=== PATIENT | female | born 1995 | race Caucasian/White ===

== ENCOUNTER 2019-04-05 12:21 | Inpatient (IN) | payer BC ==
[2019-04-05 13:08] LABS: ABS Basophils 0.1 10^3/ul (0-0.2); ABS Eosinophils 0.1 10^3/ul (0-0.6); ABS Lymphocytes 1.6 10^3/ul (1.0-4.8); ABS Monocytes 0.4 10^3/ul (0-0.8); ABS Neutrophils 4.6 10^3/ul (1.5-7.7); Eosinophil % 1.2 %; Hematocrit 42 % (35-47); Hemoglobin 13.8 g/dL (12.0-16.0); Lymphocyte % 23.4 %; Mean Corpuscular HGB Conc 33 g/dL (31-36); Mean Corpuscular Hemoglobin 28 pg (27-31); Mean Corpuscular Volume 85 fL (80-97); Mean Platelet Volume 7.6 fL (7.4-10.4); Nucleated Red Blood Cells % 0.2; Platelet Count 310 10^3/uL (150-450); Red Blood Count 4.93 10^6 /uL (3.70-4.87); Red Cell Distribution Width 13 % (10.5-15); White Blood Count 6.7 10^3/uL (3.5-10.8)
[2019-04-05 13:08] LABS: Urine Appearance Cloudy; Urine Bacteria 1+ (Absent); Urine Bilirubin Negative (Negative); Urine Blood Negative (Negative); Urine Color Yellow; Urine Glucose Negative (Negative); Urine Ketones Negative (Negative); Urine Nitrite Negative (Negative); Urine Protein Negative (Negative); Urine Red Blood Cell Trace(0-2/hpf) (Absent); Urine Specific Gravity 1.021 (1.010-1.030); Urine Squamous Epithelial Cell Present (Absent); Urine Urobilinogen Negative (Negative); Urine White Blood Cell Trace(0-5/hpf) (Absent)
[2019-04-05 13:20] LABS: Urine Benzodiazepine Screen None Detected (None Detect); Urine Opiates Screen None Detected (None Detect)
[2019-04-05 13:29] LABS: ALT 15 U/L (7-52); AST 11 U/L (13-39); Albumin 4.4 g/dL (3.2-5.2); Albumin/Globulin Ratio 1.3 (1-3); Alkaline Phosphatase 39 U/L (34-104); Anion Gap 8 mmol/L (2-11); BUN/Creatinine Ratio 14.1 (8-20); Blood Urea Nitrogen 11 mg/dL (6-24); CO2 Carbon Dioxide 27 mmol/L (22-32); Calcium 9.7 mg/dL (8.6-10.3); Chloride 106 mmol/L (101-111); EGFR African American 110.7 (>60); EGFR Non-African American 91.5 (>60); Globulin 3.3 g/dL (2-4); Glucose 101 mg/dL (70-100); Sodium 141 mmol/L (135-145); Total Protein 7.7 g/dL (6.4-8.9)
[2019-04-05 13:49] LABS: Acetaminophen < 15 mcg/mL; Alcohol < 10 mg/dL (<10); Salicylate < 2.50 mg/dL (<30)
[2019-04-05 14:17] LABS: TSH (Thyroid Stimulating Horm) 0.87 mcIU/mL (0.34-5.60)
--- NOTE | 2019-04-05 14:40 | ED ---
Psychiatric Complaint - HPI Summary HPI Summary: Patient is a 23-year-old female presenting to the ED with suicidal ideation for several months which has been worsening over the past week as well as self-harm to the bilateral wrists with cutting. She denies any recent cutting today, with last cutting history approximately 1 week ago. She has never had a suicidal attempt. She endorses suicidal thoughts, but denies any plan. Denies any homicidal ideation. Denies any other self-harm other than cutting the dorsum of the wrists. She denies any bleeding. Denies any pain at this time. She states she has been under more stress recently with a relationship breakup. She currently does not take any medications and does not have a therapist. She denies any drug or alcohol use. - History Of Current Complaint Chief Complaint: EDMentalHealth Time Seen by Provider: 04/05/19 12:27 Hx Obtained From: Patient ?: No Onset/Duration: Sudden Onset Timing: Constant Severity Initially: Moderate Severity Currently: Moderate - 1 Aggravating Factor(s): Nothing Alleviating Factor(s): Nothing Associated Signs And Symptoms: Positive: Negative Related History: Positive For: Prior Psychiatric Issues Has Suicidal: Reports: Thoughts - Risk Factor(s) Completed Suicide Risk Factors: Negative - Allergies/Home Medications Allergies/Adverse Reactions: Allergies Allergy/AdvReac Type Severity Reaction Status Date / Time No Known Drug Allergies Allergy See Comment Verified 04/05/19 17:23 dairy Allergy Abdominal Uncoded 04/05/19 12:34 Pain Home Medications: Home Medications Etonogest/Eth.estradiol (Nf) [Nuvaring Vaginal Ring] 1 applic VAGINAL MONTHLY [History Confirmed 04/05/19] PMH/Surg Hx/FS Hx/Imm Hx Previously Healthy: Yes - Immunization History Hx Pertussis Vaccination: No Immunizations Up to Date: Yes Infectious Disease History: No Infectious Disease History: Denies: Traveled Outside the [place] in Last 30 Days - Social History Occupation: Unemployed Lives: With Family Alcohol Use: Occasionally Hx Substance Use: Yes Substance Use Type: Reports: Marijuana Hx Tobacco Use: No Smoking Status (MU): Current Some Day Smoker Review of Systems Constitutional: Negative Negative: Fever, Chills, Fatigue, Skin Diaphoresis Negative: Palpitations, Chest Pain Negative: Shortness Of Breath, Cough Negative: Abdominal Pain, Vomiting, Diarrhea, Nausea Negative: Arthralgia, Myalgia Negative: Rash, Bruising Positive: Anxious, Depressed All Other Systems Reviewed And Are Negative: Yes Physical Exam Triage Information Reviewed: Yes Vital Signs On Initial Exam: Initial Vitals Temp Pulse Resp BP Pulse Ox 98 F 97 16 142/102 99 04/05/19 12:31 04/05/19 12:31 04/05/19 12:31 04/05/19 12:31 04/05/19 12:31 Vital Signs Reviewed: Yes Appearance: Positive: Well-Appearing, Well-Nourished Skin: Positive: Warm, Skin Color Reflects Adequate Perfusion Head/Face: Positive: Normal Head/Face Inspection Eyes: Positive: EOMI, IZA, Conjunctiva Clear Neck: Positive: Supple, No Lymphadenopathy Respiratory/Lung Sounds: Positive: Clear to Auscultation, Breath Sounds Present Cardiovascular: Positive: RRR, Pulses are Symmetrical in both Upper and Lower Extremities Musculoskeletal: Positive: Normal, Strength/ROM Intact Neurological: Positive: Speech Normal Psychiatric: Positive: Normal, Affect/Mood Appropriate Diagnostics - Vital Signs Vital Signs Temp Pulse Resp BP Pulse Ox 04/05/19 12:31 98 F 97 16 142/102 99 - Laboratory Lab Results: Lab Results 04/05/19 04/05/19 04/05/19 Range/Units 12:55 12:55 12:57 WBC 6.7 (3.5-10.8) 10^3/uL RBC 4.93 H (3.70-4.87) 10^6 /uL Hgb 13.8 (12.0-16.0) g/dL Hct 42 (35-47) % MCV 85 (80-97) fL MCH 28 (27-31) pg MCHC 33 (31-36) g/dL RDW 13 (10.5-15) % Plt Count 310 (150-450) 10^3/uL MPV 7.6 (7.4-10.4) fL Neut % (Auto) 68.1 % Lymph % (Auto) 23.4 % [place] % (Auto) 6.2 % Eos % (Auto) 1.2 % Baso % (Auto) 1.1 % Absolute Neuts (auto) 4.6 (1.5-7.7) 10^3/ul Absolute Lymphs (auto) 1.6 (1.0-4.8) 10^3/ul Absolute Monos (auto) 0.4 (0-0.8) 10^3/ul Absolute Eos (auto) 0.1 (0-0.6) 10^3/ul Absolute Basos (auto) 0.1 (0-0.2) 10^3/ul Absolute Nucleated RBC 0.0 10^3/ul Nucleated RBC % 0.2 Sodium (135-145) mmol/L Potassium (3.5-5.0) mmol/L Chloride (101-111) mmol/L Carbon Dioxide (22-32) mmol/L Anion Gap (2-11) mmol/L BUN (6-24) mg/dL Creatinine (0.51-0.95) mg/dL Est GFR ( Amer) (>60) Est GFR (Non-Af Amer) (>60) BUN/Creatinine Ratio (8-20) Glucose (70-100) mg/dL Calcium (8.6-10.3) mg/dL Total Bilirubin (0.2-1.0) mg/dL AST (13-39) U/L ALT (7-52) U/L Alkaline Phosphatase (34-104) U/L Total Protein (6.4-8.9) g/dL Albumin (3.2-5.2) g/dL Globulin (2-4) g/dL Albumin/Globulin Ratio (1-3) TSH (0.34-5.60) mcIU/mL Urine Color Yellow Urine Appearance Cloudy Urine pH 6.0 (5-9) Ur Specific [place] 1.021 (1.010-1.030) Urine Protein Negative (Negative) Urine Ketones Negative (Negative) Urine Blood Negative (Negative) Urine Nitrate Negative (Negative) Urine Bilirubin Negative (Negative) Urine Urobilinogen Negative (Negative) Ur Leukocyte Esterase 1+ A (Negative) Urine WBC (Auto) Trace(0-5/hpf) (Absent) Urine RBC (Auto) Trace(0-2/hpf) (Absent) Ur Squamous Epith Cells Present A (Absent) Urine Bacteria 1+ A (Absent) Urine Glucose Negative (Negative) Salicylates (<30) mg/dL Urine Opiates Screen None detected (None Detect) Acetaminophen mcg/mL Ur Barbiturates Screen None detected (None Detect) Ur Phencyclidine Scrn None detected (None Detect) Ur Amphetamines Screen None detected (None Detect) U Benzodiazepines Scrn None detected (None Detect) Urine Cocaine Screen None detected (None Detect) U Cannabinoids Screen Presumptive positive A (None Detect) Serum Alcohol (<10) mg/dL 04/05/19 Range/Units 12:57 WBC (3.5-10.8) 10^3/uL RBC (3.70-4.87) 10^6 /uL Hgb (12.0-16.0) g/dL Hct (35-47) % MCV (80-97) fL MCH (27-31) pg MCHC (31-36) g/dL RDW (10.5-15) % Plt Count (150-450) 10^3/uL MPV (7.4-10.4) fL Neut % (Auto) % Lymph % (Auto) % [place] % (Auto) % Eos % (Auto) % Baso % (Auto) % Absolute Neuts (auto) (1.5-7.7) 10^3/ul Absolute Lymphs (auto) (1.0-4.8) 10^3/ul Absolute Monos (auto) (0-0.8) 10^3/ul Absolute Eos (auto) (0-0.6) 10^3/ul Absolute Basos (auto) (0-0.2) 10^3/ul Absolute Nucleated RBC 10^3/ul Nucleated RBC % Sodium 141 (135-145) mmol/L Potassium 4.0 (3.5-5.0) mmol/L Chloride 106 (101-111) mmol/L Carbon Dioxide 27 (22-32) mmol/L Anion Gap 8 (2-11) mmol/L BUN 11 (6-24) mg/dL Creatinine 0.78 (0.51-0.95) mg/dL Est GFR ( Amer) 110.7 (>60) Est GFR (Non-Af Amer) 91.5 (>60) BUN/Creatinine Ratio 14.1 (8-20) Glucose 101 H (70-100) mg/dL Calcium 9.7 (8.6-10.3) mg/dL Total Bilirubin 1.00 (0.2-1.0) mg/dL AST 11 L (13-39) U/L ALT 15 (7-52) U/L Alkaline Phosphatase 39 (34-104) U/L Total Protein 7.7 (6.4-8.9) g/dL Albumin 4.4 (3.2-5.2) g/dL Globulin 3.3 (2-4) g/dL Albumin/Globulin Ratio 1.3 (1-3) TSH 0.87 (0.34-5.60) mcIU/mL Urine Color Urine Appearance Urine pH (5-9) Ur Specific [place] (1.010-1.030) Urine Protein (Negative) Urine Ketones (Negative) Urine Blood (Negative) Urine Nitrate (Negative) Urine Bilirubin (Negative) Urine Urobilinogen (Negative) Ur Leukocyte Esterase (Negative) Urine WBC (Auto) (Absent) Urine RBC (Auto) (Absent) Ur Squamous Epith Cells (Absent) Urine Bacteria (Absent) Urine Glucose (Negative) Salicylates < 2.50 (<30) mg/dL Urine Opiates Screen (None Detect) Acetaminophen < 15 mcg/mL Ur Barbiturates Screen (None Detect) Ur Phencyclidine Scrn (None Detect) Ur Amphetamines Screen (None Detect) U Benzodiazepines Scrn (None Detect) Urine Cocaine Screen (None Detect) U Cannabinoids Screen (None Detect) Serum Alcohol < 10 (<10) mg/dL Result Diagrams: 04/05/19 12:57 04/05/19 12:57 Lab Statement: Any lab studies that have been ordered have been reviewed, and results considered in the medical decision making process. Course/Dx - Course Course Of Treatment: During his course of treatment, the patient's evaluated for suicidal ideation without plan. On arrival into the ED, patient was placed on constant observation due to her suicidal ideation status. After assessment, she was then placed on every 15 assessment. Vital signs are stable. Labs obtained and are WNL. UA obtained and is WNL. She is cleared for MHU. Patient is admitted to mental health unit for unspecified depression disorder. - Differential Dx/Clinical Impression Differential Diagnosis/HQI/PQRI: Positive: Anxiety, Bipolar Disorder, Depression Provider Diagnosis: Depressive disorder Discharge - Sign-Out/Discharge Documenting (check all that apply): Patient Departure All imaging exams completed and their final reports reviewed: No Patient Received Moderate/Deep Sedation with Procedure: No - Discharge Plan Condition: Good [facility] [place] [facility] Billing Disposition and Condition Condition: GOOD Disposition: Psychiatric Facility [facility] [place]
[2019-04-05] MEDS ORDERED: Acetaminophen TAB* 325 MG PO PRN (17:10)
[2019-04-05] MEDS ORDERED: Al Hydrox/Mg Hydrox/Simet LIQ* 30 ML UDC PO PRN (17:10)
[2019-04-05] MEDS ORDERED: hydrOXYzine HCL TAB* 50 MG PO PRN (17:11)
[2019-04-06 08:24] LABS: HDL Cholesterol 44.9 mg/dL
--- NOTE | 2019-04-06 08:45 | HP ---
H&P (Free Text) History and Physical: Justification for admission: Immediate Safety. CC " I found out that the alyssa I was dating is engaged to someone else" The patient was brought to [facility] by her mother. 3 weeks ago she found out her boyfriend that she was dating for the last 6 months was engaged to another women. She has been cutting her self with a knife on her left arm, she has been trouble with sleep and has had a poor appetite with 10-15 weight loss. She has tried to talk with friends about how she feels. She reported having racing thoughts and feels used and worthless. She denied access to firearms or stockpiles of medications. The patient denied homicidal ideation intent or plan. The patient denied auditory and/ or visual hallucinations. MDD Reported feeling depressed which has interrupted her everyday functioning. She has been having crying spells , feeling empty inside, feelings hopelessness and worthless. She has had unintentional weight loss and appetite . Reported interruption of sleep and decreased concentration. Anxiety Reported having symptoms of anxiety in the past where her heart feels that it is beating out of chest, sweaty palms, or shallow breathing. She reported having feelings of restlessness, high strung, worrying too much most of the time. Bipolar Denied symptoms of ricky such as having many ideas at once. Denied increased talkativeness where no one can interrupt. Denied feeling irritable most of the time while having an persistent abundance of energy most of the day without the use of energy drinks, stimulants, or recreational drug use. Denied an increase in intensity in goal directed activities. Denied having the decreased need to sleep for days , having prolonged elevated heighted mood , or feeling on top of the world. Denied impulsive risky sexual encounters. Denied spending money recklessly , going on spending sprees wiping out savings. Denied impulsively traveling out of town or country, having super phillips, and unrealistic wealth or fame. Psychosis Does not endorse hearing things that other people do not hear or seeing things other people do not see. Denied feeling that TV is making references. Denied feeling that people are spying , following , or reading their thoughts. Phobias: Patient denied having excessive fear of a particular thing or situation. Eating disorders: Patient denied having excessive eating habits or feelings of guilt after eating. Denied repeated episodes of self induced vomiting after eating. PTSD Denied flashbacks, nightmares and avoidance of a prior traumatic event. PAST PSYCHIATRIC HISTORY: Prior Diagnosis : None History of past Psychiatric Hospitalizations: No prior psychiatric admission. History of past suicide/homicide attempts : Denied past suicide attempts. Denied past homicidal incidents. Outpatient follow-up: none Medications: No past trials of medications Guardianship: None. FAMILY HISTORY: - Suicide: Denied family history of suicide. - Mental illness: Denied a history of mental health in immediate family members. - Substance abuse: Denied substance abuse among family members. SUBSTANCE ABUSE HISTORY: Denied using heroin and cocaine other illicit substances. Denied abusing pills not prescribed . Denied past Substance abuse treatment. - EtOH: drinks socially < once a month - Tobacco: Denied - Cannabis: uses daily SOCIAL HISTORY: - Childhood: Grew up in [place] raised by both parents, until her parents were when she was in 6th grade then mostly raised by her mother. Currently lives in [place] with a friend. Completed College with a degree in [employer] at [employer]. She is single has no children. Currently works at [employer]. She denied past history of sexual and or physical abuse. - Legal history: Denied - service history: Denied PAST MEDICAL HISTORY: Denied heart disease, diabetes, cancer and/ or other medical conditions. - Allergies: Dairy. Physical Exam: Please see ED note Mental Status Exam on Admission APPEARANCE : 23 year old female who appears stated age. Patient is not malodourous, and appears to have fair hygiene and grooming. BEHAVIOR: Cooperative , calm EYE CONTACT: Fair PSYCHOMOTOR ACTIVITY: No psychomotor agitation or retardation. MOVEMENTS: No abnormal movements observed. SPEECH : Normal rate, rhythm, volume and tone. MOOD : " Sad" AFFECT : Type is depressed Range is blunted shallow depth Mood congruent Labile THOUGHT PROCESS: formulated and organized in a logical, linear goal directed manner. No flight of ideas , neologism (made up words) , perseveration , tangential , loose associations , or circumstantiality. THOUGHT CONTENT: no delusions, obsessions, phobias or preoccupations. PERCEPTION: No current auditory or visual hallucinations. Doesnt appear to be responding to internal cues. No evidence of depersonalization , de-realization, or illusions SUICIDALITY Recent suicidal ideation HOMICIDALITY Denied homicidal ideation, intent or plan. Insight/judgment: fair insight and judgment ORIENTATION: Oriented to self, location, and time. Diagnosis on Admission: Major Depressive Disorder, severe. Assessment: 23 year old female with no prior psychiatric history and recent break came to the hospital with suicidal ideation was admitted to the BSU at [facility]. Plan #Admit to BSU, Q15 minute observation. Start regular diet without dairy. Encourage participation in activities on the milieu. #Patient evaluated in ED and was determined by the emergency room Physician to be medically fit for admission to the BSU. # Justification for Admission: For immediate safety per outlined in the [place] Mental Hygiene Code. # Voluntary admission. The patient requires inpatient admission at this time to assure safety, receive treatment and work toward stabilization. # Labs ordered: CBC, CMP, UDS, TSH, HBA1c, TSH, Toxicology screen, Urine analysis, and lipid profile. B-HCG was ordered and results are negative. # Obtain collateral information once release is signed. # Collaboration with Social Work to assist with disposition and after care. #Goals before discharge include: Decrease depression and self injurious behavior. The risks, benefits, and alternative treatment options were discussed as well as of the risks of refusing treatment. After this discussion and an acknowledgement of this understanding was made. A risk/ benefit assessment of treatment was considered and discussed with the patient. When comparing the risks of treatment with the dangers of not receiving treatment, the benefits of treatment outweigh the treatment risks at this time. Risks of suicidal ideation , behavioral changes, dystonia, movement disorders, cardiac conduction changes , serotonin syndrome, metabolic risks were among some of the risks discussed.
[2019-04-06] MEDS: Sertraline* 25 MG TAB PO SCH (13:35)
[2019-04-07] MEDS: Sertraline* 25 MG TAB PO SCH (09:48)
--- NOTE | 2019-04-07 12:30 | PN ---
Subjective - Subjective Date of Service: 04/07/19 Service Type: 29615 Hosp care 35 min high complexity Subjective: Nursing Report: Patient was visible on unit, no chemical restraints or PRNs. Slept overnight without incident. Attending group activities. CC: "I felt dizzy Patient was seen and evaluated today in the common room. The patient reported she feels safe on the unit and is interacting with peers. She reported having an adequate appetite and sleep. The patient reports attending and participating in day groups. Per nursing no behavioral issues or overnight events reported. Patient reported that she felt dizzy after taking her medications yesterday. She continues to have self defeating thoughts about being taken advantage of by her ex boyfriend. She thinks that she would be able to return to work in a place where he is at because she could avoid him since the place is large. Objective - General Observations Appearance: Neat Appears Stated Age: Yes Stature: Thin Posture: WNL Eye Contact: Average Behavior/Activity: WNL - Interaction Observations Attitude Towards Examiner: Cooperative Stated Mood: Anxious Affect: Blunted Speech Pattern/Tone: Clear Thought Process: Coherent Perception: WNL Thought Content: Self-Deprecatory Thought Process: Lethality: Passive Wish Hallucination Type: None Delusion Type: None - Cognitive Function Orientation: A&O x 4 Level of Consciousness: Awake Cognition: WNL - Medication Compliance Cooperative with Inpatient Medication Regimen: Yes - Group Participation Participates in Group Activities: Yes Assessment - Assessment Merits Inpatient Hospitalization: For Immediate Safety Clinical Impression: 23 year old female with recent suicidal ideation and break up with a boyfriend presented to the BSU Plan - Plan Treatment Plan: Name: SHAREE LOPEZ Birthdate: 1995 [id number] Plan #A Q30 minute observation and staff pass # Voluntary admission. The patient requires inpatient admission at this time to assure safety, receive treatment and work toward stabilization. B-HCG was ordered and results are negative. # Obtain collateral information once release is signed. Mother is a supportive resource. # Collaboration with Social Work to assist with disposition and after care. # Continue zoloft 25mg daily #Goals before discharge include: Decrease depression and self injurious behavior. Vital Signs Temp Pulse Resp BP Pulse Ox 98.9 F 81 16 128/85 100 04/07/19 07:44 04/07/19 07:44 04/07/19 07:44 04/07/19 07:44 04/07/19 07:44 Sodium 141 mmol/L (135-145) 04/05/19 12:57 Potassium 4.0 mmol/L (3.5-5.0) 04/05/19 12:57 BUN 11 mg/dL (6-24) 04/05/19 12:57 Creatinine 0.78 mg/dL (0.51-0.95) 04/05/19 12:57 Hemoglobin A1c 5.1 % (4.0-5.6) 04/06/19 07:55 Calcium 9.7 mg/dL (8.6-10.3) 04/05/19 12:57 AST 11 U/L (13-39) L 04/05/19 12:57 ALT 15 U/L (7-52) 04/05/19 12:57 Triglycerides 94 mg/dL 04/06/19 07:55 Cholesterol 121 mg/dL 04/06/19 07:55 LDL Cholesterol 57 mg/dL 04/06/19 07:55 Continued Medication Management: Continue Outpt Medication Medications: Current Medications Acetaminophen (Tylenol Tab*) 650 mg PO Q4H PRN PRN Reason: for pain; or Temp >101 F Al Hydrox/Mg Hydrox/Simethicone (Maalox Plus*) 30 ml PO Q4H PRN PRN Reason: INDIGESTION Hydroxyzine HCl (Atarax Tab*) 50 mg PO Q6H PRN PRN Reason: ANXIETY Sertraline HCl (Zoloft*) 25 mg PO DAILY LOIS Last Admin: 04/07/19 09:48 Dose: 25 mg - Discharge Plan Discharge Plan: Inpatient Hospitalization
[2019-04-08] MEDS: Sertraline* 50 MG TAB PO SCH (09:09)
--- NOTE | 2019-04-08 11:30 | PN ---
Subjective - Subjective Date of Service: 04/08/19 Service Type: 64783 Hosp care 35 min high complexity Subjective: Nursing Report: Patient was visible on unit, no chemical restraints or PRNs. Slept overnight without incident. Attending group activities. CC: "I am alright Patient was seen and evaluated today in the common room. She was observed eating breakfast before the encounter.The patient reported she feels safe on the unit and is interacting with peers. She reported getting a lot out of the groups today although it brought up bad feelings She reported having an adequate appetite and sleep. The patient reports attending and participating in day groups. Per nursing no behavioral issues or overnight events reported. Patient reported that she is tolerating medications without side effects today. Her mother visited the unit and met with typewriter assembler and inquired about follow up therapists. Objective - General Observations Appearance: Neat Appears Stated Age: Yes Stature: Thin Posture: WNL Eye Contact: Average Behavior/Activity: WNL - Interaction Observations Attitude Towards Examiner: Cooperative Stated Mood: Dysphoric Affect: Blunted Speech Pattern/Tone: Clear, Quiet Volume Thought Process: Coherent Perception: WNL Thought Content: WNL, Self-Deprecatory Hallucination Type: None Delusion Type: None - Cognitive Function Orientation: A&O x 4 Level of Consciousness: Awake Cognition: WNL - Medication Compliance Cooperative with Inpatient Medication Regimen: Yes - Group Participation Participates in Group Activities: Yes Assessment - Assessment Clinical Impression: 23 year old female with recent suicidal ideation and break up with a boyfriend presented to the BSU Plan - Plan Treatment Plan: Name: SHAREE LOPEZ Birthdate: 1995 [id number] Plan #Q30 minute observation and staff pass # Voluntary admission. The patient requires inpatient admission at this time to assure safety, receive treatment and work toward stabilization. # Mother was contacted and plans to visit today # Collaboration with Social Work to assist with disposition and after care. # Continue zoloft 50mg daily #Tentative Discharge tomorrow or Friday. # Patient would benefit from cognitive behavioral therapy. #Goals before discharge include: Decrease depression and self injurious behavior. Continued Medication Management: Continue Outpt Medication Medications: Current Medications Acetaminophen (Tylenol Tab*) 650 mg PO Q4H PRN PRN Reason: for pain; or Temp >101 F Al Hydrox/Mg Hydrox/Simethicone (Maalox Plus*) 30 ml PO Q4H PRN PRN Reason: INDIGESTION Hydroxyzine HCl (Atarax Tab*) 50 mg PO Q6H PRN PRN Reason: ANXIETY Sertraline HCl (Zoloft*) 50 mg PO DAILY LOIS Last Admin: 04/08/19 09:09 Dose: 50 mg - Discharge Plan Discharge Plan: Inpatient Hospitalization
--- NOTE | 2019-04-08 11:50 | PN ---
BSU: Group Therapy Note - Service Type Service Type: 06264 Group Psychotherapy - Cognitive Behavioral Group Therapy ( CBT):Patient attended CBT programming this morning and presented with flat affect that did not vary with discussion. Although responsive to direct prompts to respond to questions, patient did not engage in spontaneous conversation.
[2019-04-09] MEDS: Sertraline* 50 MG TAB PO SCH (08:59)
--- NOTE | 2019-04-09 09:48 | PN ---
Subjective - Subjective Date of Service: 04/09/19 Service Type: 04914 Hosp care 35 min high complexity Subjective: Nursing Report: Patient was visible on unit, no chemical restraints or PRNs. Slept overnight without incident. Attending group activities. CC: "I am well Patient was seen and evaluated today in the common room. The patient reported she feels safe on the unit and is interacting with peers. She reported having an adequate appetite and sleep. The patient reports attending and participating in day groups. Per nursing no behavioral issues or overnight events reported. Patient reported that she is tolerating medications without side effects. She reported that she gained much insight with the groups and plans to stay the weekend because she wants to engage in more treatment. Objective - General Observations Appearance: Neat Appears Stated Age: Yes Stature: Thin Posture: WNL Eye Contact: Average Behavior/Activity: WNL - Interaction Observations Attitude Towards Examiner: Cooperative Stated Mood: Dysphoric Affect: Blunted Thought Process: Coherent Perception: WNL Thought Content: Self-Deprecatory Hallucination Type: None - Cognitive Function Orientation: A&O x 4 Level of Consciousness: Awake Cognition: WNL - Medication Compliance Cooperative with Inpatient Medication Regimen: Yes - Group Participation Participates in Group Activities: Yes Assessment - Assessment Clinical Impression: 23 year old female with recent suicidal ideation and break up with a boyfriend presented to the [facility] Plan - Plan Treatment Plan: Name: SHAREE LOPEZ Birthdate: 1995 [id number] Plan #Q30 minute observation and staff pass # Voluntary admission. The patient requires inpatient admission at this time to assure safety, receive treatment and work toward stabilization. # Mother was contacted and plans to visit today # Collaboration with Social Work to assist with disposition and after care. # Continue zoloft 50mg daily #Tentative Discharge Friday. # Patient would benefit from cognitive behavioral therapy. #Goals before discharge include: Decrease depression and self injurious behavior. Continued Medication Management: Continue Outpt Medication Medications: Current Medications Acetaminophen (Tylenol Tab*) 650 mg PO Q4H PRN PRN Reason: for pain; or Temp >101 F Al Hydrox/Mg Hydrox/Simethicone (Maalox Plus*) 30 ml PO Q4H PRN PRN Reason: INDIGESTION Hydroxyzine HCl (Atarax Tab*) 50 mg PO Q6H PRN PRN Reason: ANXIETY Sertraline HCl (Zoloft*) 50 mg PO DAILY LOIS Last Admin: 04/09/19 08:59 Dose: 50 mg - Discharge Plan Discharge Plan: Inpatient Hospitalization
--- NOTE | 2019-04-09 11:22 | PN ---
[facility]: Group Therapy Note - Service Type Service Type: 13364 Group Psychotherapy - Cognitive Behavioral Group Therapy ( CBT):Patient was attentive and participatory in CBT programming this morning, and remained in good behavioral control. Patient expressed positive insights regarding relevant treatment interventions and goals.
[2019-04-10] MEDS: Sertraline* 50 MG TAB PO SCH (08:35)
--- NOTE | 2019-04-10 22:25 | PN ---
Subjective - Subjective Date of Service: 04/10/19 Service Type: 67788 Hosp care 15 min low complexity Subjective: Reports not wanting to return to work situation where she will have to face ex who cheated on her, has child with another woman. Reports OK mood, no SI, no urge to cut. Has been sleeping poorly but does not want any sleep aid. Declines any med change, stating there is no need for that. Family came to visit, feels supported. Objective - General Observations Appearance: Disheveled - mildly Appears Stated Age: Yes Stature: WNL Posture: WNL Eye Contact: Average Behavior/Activity: WNL - Interaction Observations Attitude Towards Examiner: Cooperative Stated Mood: Euthymic Speech Pattern/Tone: Clear Thought Process: Coherent, Goal Directed Perception: WNL Thought Content: WNL Hallucination Type: None Delusion Type: None - Cognitive Function Orientation: A&O x 4 Level of Consciousness: Awake, Alert, Appropriate Cognition: WNL Estimated Intelligence: Normal Insight: WNL Judgment Within Normal Limits: Yes - Medication Compliance Cooperative with Inpatient Medication Regimen: Yes - Group Participation Participates in Group Activities: Yes Assessment - Assessment Merits Inpatient Hospitalization: Consolidate Improvements, For Discharge Planning Clinical Impression: 23 year old female with recent suicidal ideation and break up with a boyfriend presented to the [facility] Plan - Plan Treatment Plan: Name: SHAREE LOPEZ Birthdate: 1995 [id number] Plan #Q30 minute observation and staff pass # Voluntary admission. The patient requires inpatient admission at this time to assure safety, receive treatment and work toward stabilization. # Mother was contacted and plans to visit today # Collaboration with Social Work to assist with disposition and after care. # Continue zoloft 50mg daily #Tentative Discharge Friday. # Patient would benefit from cognitive behavioral therapy. #Goals before discharge include: Decrease depression and self injurious behavior. Medications: Current Medications Acetaminophen (Tylenol Tab*) 650 mg PO Q4H PRN PRN Reason: for pain; or Temp >101 F Al Hydrox/Mg Hydrox/Simethicone (Maalox Plus*) 30 ml PO Q4H PRN PRN Reason: INDIGESTION Hydroxyzine HCl (Atarax Tab*) 50 mg PO Q6H PRN PRN Reason: ANXIETY Sertraline HCl (Zoloft*) 50 mg PO DAILY LOIS Last Admin: 04/10/19 08:35 Dose: 50 mg - Discharge Plan Discharge Plan: Outpatient Follow Up
[2019-04-11] MEDS: Sertraline* 50 MG TAB PO SCH (08:37)
[2019-04-11] MEDS ORDERED: ETONOGESTREL VAGINAL ONE (09:00)
[2019-04-11] MEDS ORDERED: ETH ESTRADIOL VAGINAL ONE (09:00)
[2019-04-12] MEDS: Sertraline* 50 MG TAB PO SCH (08:43)
--- NOTE | 2019-04-12 10:19 | DS ---
Subjective - Subjective Service Types: [id number] [facility] Day Mgmt complex over 30 min Discharge Date: 04/12/19 Subjective: CC: " I am ready to go home" Patient reported that she is ready to go home and looks forward to seeing her friends when she goes home. She reported going to the groups. No overnight events. Justification for admission: Immediate Safety. CC " I found out that the alyssa I was dating is engaged to someone else" The patient was brought to [facility] by her mother. 3 weeks ago she found out her boyfriend that she was dating for the last 6 months was engaged to another women. She has been cutting her self with a knife on her left arm, she has been trouble with sleep and has had a poor appetite with 10-15 weight loss. She has tried to talk with friends about how she feels. She reported having racing thoughts and feels used and worthless. She denied access to firearms or stockpiles of medications. The patient denied homicidal ideation intent or plan. The patient denied auditory and/ or visual hallucinations. MDD Reported feeling depressed which has interrupted her everyday functioning. She has been having crying spells , feeling empty inside, feelings hopelessness and worthless. She has had unintentional weight loss and appetite . Reported interruption of sleep and decreased concentration. Anxiety Reported having symptoms of anxiety in the past where her heart feels that it is beating out of chest, sweaty palms, or shallow breathing. She reported having feelings of restlessness, high strung, worrying too much most of the time. Bipolar Denied symptoms of ricky such as having many ideas at once. Denied increased talkativeness where no one can interrupt. Denied feeling irritable most of the time while having an persistent abundance of energy most of the day without the use of energy drinks, stimulants, or recreational drug use. Denied an increase in intensity in goal directed activities. Denied having the decreased need to sleep for days , having prolonged elevated heighted mood , or feeling on top of the world. Denied impulsive risky sexual encounters. Denied spending money recklessly , going on spending sprees wiping out savings. Denied impulsively traveling out of town or country, having super phillips, and unrealistic wealth or fame. Psychosis Does not endorse hearing things that other people do not hear or seeing things other people do not see. Denied feeling that TV is making references. Denied feeling that people are spying , following , or reading their thoughts. Phobias: Patient denied having excessive fear of a particular thing or situation. Eating disorders: Patient denied having excessive eating habits or feelings of guilt after eating. Denied repeated episodes of self induced vomiting after eating. PTSD Denied flashbacks, nightmares and avoidance of a prior traumatic event. PAST PSYCHIATRIC HISTORY: Prior Diagnosis : None History of past Psychiatric Hospitalizations: No prior psychiatric admission. History of past suicide/homicide attempts : Denied past suicide attempts. Denied past homicidal incidents. Outpatient follow-up: none Medications: No past trials of medications Guardianship: None. FAMILY HISTORY: - Suicide: Denied family history of suicide. - Mental illness: Denied a history of mental health in immediate family members. - Substance abuse: Denied substance abuse among family members. SUBSTANCE ABUSE HISTORY: Denied using heroin and cocaine other illicit substances. Denied abusing pills not prescribed . Denied past Substance abuse treatment. - EtOH: drinks socially < once a month - Tobacco: Denied - Cannabis: uses daily SOCIAL HISTORY: - Childhood: Grew up in [place] raised by both parents, until her parents were when she was in 6th grade then mostly raised by her mother. Currently lives in [place] with a friend. Completed College with a degree in Extric[employer] design at [employer]. She is single has no children. Currently works at [employer]. She denied past history of sexual and or physical abuse. - Legal history: Denied - service history: Denied PAST MEDICAL HISTORY: Denied heart disease, diabetes, cancer and/ or other medical conditions. - Allergies: Dairy. Physical Exam: Please see ED note Mental Status Exam on Admission APPEARANCE : 23 year old female who appears stated age. Patient is not malodourous, and appears to have fair hygiene and grooming. BEHAVIOR: Cooperative , calm EYE CONTACT: Fair PSYCHOMOTOR ACTIVITY: No psychomotor agitation or retardation. MOVEMENTS: No abnormal movements observed. SPEECH : Normal rate, rhythm, volume and tone. MOOD : " Sad" AFFECT : Type is depressed Range is blunted shallow depth Mood congruent Labile THOUGHT PROCESS: formulated and organized in a logical, linear goal directed manner. No flight of ideas , neologism (made up words) , perseveration , tangential , loose associations , or circumstantiality. THOUGHT CONTENT: no delusions, obsessions, phobias or preoccupations. PERCEPTION: No current auditory or visual hallucinations. Doesnt appear to be responding to internal cues. No evidence of depersonalization , de-realization, or illusions SUICIDALITY Recent suicidal ideation HOMICIDALITY Denied homicidal ideation, intent or plan. Insight/judgment: fair insight and judgment ORIENTATION: Oriented to self, location, and time. Diagnosis on Admission: Major Depressive Disorder, severe. Diagnosis on Discharge: Major Depressive Disorder, in partial remission. Condition at the time of discharge: At the time of discharge patient showed improvement of sleep and appetite. The patient was not a danger to self or others. The patient denied suicidal ideation , intent or plan. The patient denied homicidal targets, ideation, intent or plan. This patient participated in psychosocial rehabilitation and gained some insight into problems. The patient gained insight into mental illness, triggers, and treatment. The patient took medication as prescribed. The patient denied side effects of medication and objective signs of side effects were not evident. Therapy Resources were offered to the patient. Patient was given a supply of prescriptions at the time of discharge. The patient plans to attend follow up care with the follow up arrangements that were discussed and put in place. Patient was asked to keep appointments as scheduled, take medication as prescribed, have routine follow up care with their primary care physician and refrain from any use of alcohol or drugs. Objective - General Observations Appearance: Neat Appears Stated Age: Yes Stature: WNL Posture: WNL Eye Contact: Average Behavior/Activity: WNL - Interaction Observations Attitude Towards Examiner: Cooperative Stated Mood: Euthymic Affect: Full Speech Pattern/Tone: Clear Thought Process: Coherent Perception: WNL Thought Content: WNL Hallucination Type: None Delusion Type: None - Cognitive Function Orientation: A&O x 4 Level of Consciousness: Awake Cognition: WNL Judgment Within Normal Limits: Yes - Medication Compliance Cooperative with Inpatient Medication Regimen: Yes - Group Participation Participates in Group Activities: Yes Treatment Course & Assessment Clinical Course & Impression: Hospital course part A: 23 year old female with recent suicidal ideation and break up with a boyfriend presented to the [facility] Hospital course part B: Labs ordered included CBC, CMP, UDS, TSH, HBA1c, TSH, BHCG, Toxicology screen, Urine analysis, and lipid profile. Labs were reviewed and did not require the need for further evaluation. Vital signs were monitored during the course of admission. The patient was admitted to the adult behavioral unit and placed on 15 minute check for safety. At a later time the patient was on Q30 minute observation and staff pass privileges. With those limits being extended , there were no occurrence of behavioral incidents. The patient did well on the unit and went to groups. Interacted with peers had adequate sleep and regular appetite. Tolerated medication changes without side effects. Group therapy and services were offered. The risks, benefits, and alternative treatment options were discussed as well as of the risks of refusing treatment. Treatment associated risks discussed. After this discussion and made an acknowledgement of this understanding. Follow up care appointments were put in place for follow up care. The importance of monitoring for metabolic changes was discussed and acknowledgement of this understanding was made. Improvements in patient from the time of admission include: Improved affect, sleep and decrease in anxiety. No longer suicidal and no longer having feelings of hopelessness. The patient expressed readiness for discharge home. The patient presents with a broader range of affect, and the absence of depressed mood, delusions, perceptual disturbances. The patient denied suicidal and or homicidal ideation intent or plan. Overall, the patient responded well to inpatient treatment as evidenced by their report of strengthening of coping mechanisms, reduced distress, and more positive outlook on circumstances. Of note there was an improvement of recognizing how emotional state can effect mood and behavior. Safety precautions were put in place which included involving the patient and their family to closely monitor for changes in mental state. In addition, implementing follow up care, screening for the need to remove/securing firearms , weapons and stockpile of medications. Patient/ family instructed to immediately call 911 should any safety concerns arise. Patient showed improvement with therapy intervention during the course of hospitalization. CBT therapy showed the greatest response and it was recommended that she continue that after discharge. Patient noted that she is able to cope with the feelings that seeing her ex boyfriends may elicit. She requested that work disability forms from her work be completed. She plans to return to work this week. B-HCG is negative for current . She was informed of the risks associated with medication in . In the event that she becomes in the future and was advised to talk with her outpatient healthcare provider about starting or stopping medications during . The patient was advised of the 24 hour / 7 days a week availability of the emergency room and to call 911 in the event of an emergency such as being suicidal and/ or homicidal. The patient was informed of the contact information for [facility], [facility] Crisis [facility], National Suicide Prevention Lifeline, [facility], Alcoholics Anonymous, and [facility]. Medications started included zoloft 25mg daily and then increased to 50mg daily. Patient reported mild nausea the first day of taking mediations that went away the following day. Collateral information was obtained from her mother who is in agreement with discharge plan. Patient will be discharged to her apartment in [place] and her mother will pick her up from the hospital. Follow up appointment at [facility]. Patient informed of follow up appointment times. See more details for follow of care in discharge plan. Risk factors: ,single, history of depression, recent break up. Protective factors: Currently no suicidal ideation, intent or plan. No prior history of suicide attempt. Has family support system. No history of service. Currently no feelings of hopelessness, not in an occupation of social isolation, doesnt have multiple medical conditions, no family history of suicide, doesnt have access to firearms. Doesnt have command hallucinations and or psychotic features at this time. No history of substance abuse. No history of alcohol abuse. Not a anniversary of a loss of a loved one. Currently future orientated. Patient engaged in treatment and compliant with medication. Sodium 141 mmol/L (135-145) 04/05/19 12:57 Potassium 4.0 mmol/L (3.5-5.0) 04/05/19 12:57 BUN 11 mg/dL (6-24) 04/05/19 12:57 Creatinine 0.78 mg/dL (0.51-0.95) 04/05/19 12:57 Hemoglobin A1c 5.1 % (4.0-5.6) 04/06/19 07:55 Calcium 9.7 mg/dL (8.6-10.3) 04/05/19 12:57 AST 11 U/L (13-39) L 04/05/19 12:57 ALT 15 U/L (7-52) 04/05/19 12:57 Triglycerides 94 mg/dL 04/06/19 07:55 Cholesterol 121 mg/dL 04/06/19 07:55 LDL Cholesterol 57 mg/dL 04/06/19 07:55 Vital Signs Temp Pulse Resp BP Pulse Ox 99.3 F 87 16 121/60 100 04/12/19 07:48 04/12/19 07:48 04/12/19 07:48 04/12/19 07:48 04/12/19 07:48 Merits Inpatient Hospitalization: No Clear for Discharge: Adequate Clinical Respons Discharge Planning - Discharge Planning Discharge Plan: Outpatient Follow Up Outpatient Program: [facility] Recommendations for Continuing Care: Medication Management Medications: Current Medications Acetaminophen (Tylenol Tab*) 650 mg PO Q4H PRN PRN Reason: for pain; or Temp >101 F Al Hydrox/Mg Hydrox/Simethicone (Maalox Plus*) 30 ml PO Q4H PRN PRN Reason: INDIGESTION Hydroxyzine HCl (Atarax Tab*) 50 mg PO Q6H PRN PRN Reason: ANXIETY Sertraline HCl (Zoloft*) 50 mg PO DAILY LOIS Last Admin: 04/12/19 08:43 Dose: 50 mg Discharge Planning: Prescriptions provided for discharge [x] Yes [] No Follow up care details as per social work arrangements. Patient response to discharge plan: [] eager for discharge [x] agreeable with discharge plan [] ambivalent about discharge [] disagrees with discharge today
[2019-04-12 10:20] VITALS: BP 121/60
== END 2019-04-12 13:30 | disposition home or self-care (01) | DRG 751 ==
LOC: ED 12:21 → BSU 18:15
PROVIDERS: ADMIT Psychiatry & Neurology Psychiatry; ATTEND Psychiatry & Neurology Psychiatry
PROC: GZHZZZZ Group Psychotherapy (ICD-10-PCS; principal; 2019-04-05)
DX: F32.2 Major depressive disorder, single episode, severe without psychotic features (principal); R45.851 Suicidal ideations; F17.200 Nicotine dependence, unspecified, uncomplicated; Z91.5 Personal history of self-harm; Z91.011 Allergy to milk products; Z72.89 Other problems related to lifestyle
CPT/HCPCS: 36415; 80053; 80061; 80307; 80320; 80329; 81003; 81015; 83036; 84443; 84702; 85025; 87086; 90853; 99222; 99231; 99233; 99238; 99284; A9270-GY; G0480

== ENCOUNTER 2019-08-08 22:38 | Emergency (ER) | payer BC ==
[2019-08-08] MEDS ORDERED: Ondansetron INJ* 2 MG/ML VIAL IV ONE (22:55)
[2019-08-08] MEDS ORDERED: NS 0.9% 1000 ML** 2,000 ML IV ONE (22:55)
--- NOTE | 2019-08-08 22:56 | ED ---
Nausea/Vomiting/Diarrhea HPI - HPI Summary HPI Summary: Patient complains of sudden onset severe nausea vomiting and diarrhea starting at 11 AM this morning. Patient unable to tolerate solid or fluid by mouth intake. Complains of intermittent abdominal cramping on left side worse with urge to vomit or have diarrhea, resolves after vomiting or bowel movement. Denies fever, cough, sore throat, CP, SOB, change in urine, vaginal symptoms. Medical history is none. Abdominal surgical history is none. - History of Current Complaint Chief Complaint: EDAbdPain Stated Complaint: VOMITING PER PT Time Seen by Provider: 08/08/19 22:52 Hx Obtained From: Patient Onset/Duration: Sudden Onset, Lasting Hours Timing: Intermittent Episodes Lasting: Severity Initially: Moderate Severity Currently: Moderate Pain Intensity: 5 Pain Scale Used: 0-10 Numeric Location: Discrete At: LUQ, Discrete At: LLQ Character: Cramping Aggravating Factor(s): Other: Alleviating Factor(s): Vomiting, Bowel Movement Nausea/Vomiting Presence: Nauseated, Vomiting Vomiting Frequency: Every 15-60 minutes Nausea/Vomiting Duration: 0-12 hours Vomiting Characteristics: Retching, Nonbilious Diarrhea Presence: Yes Diarrhea Frequency: Every 15-60 minutes Diarrhea Characteristics: Watery - Allergies/Home Medications Allergies/Adverse Reactions: Allergies Allergy/AdvReac Type Severity Reaction Status Date / Time lactose Allergy Abdominal Verified 08/08/19 22:40 Pain milk Allergy Abdominal Verified 08/08/19 22:40 Pain Milk Containing Products Allergy Abdominal Verified 08/08/19 22:40 Pain Home Medications: Home Medications Sertraline* [Zoloft*] 100 mg PO DAILY 08/08/19 [History Confirmed 08/08/19] PMH/Surg Hx/FS Hx/Imm Hx Endocrine/Hematology History: Denies: Hx Anticoagulant Therapy Cardiovascular History: Denies: Hx Pacemaker/ICD History: Denies: Hx Dialysis Sensory History: Reports: Hx Contacts or Glasses Denies: Hx Hearing Aid Opthamlomology History: Reports: Hx Contacts or Glasses EENT History: Denies: Hx Deafness Neurological History: Denies: Hx Dementia Psychiatric History: Denies: Hx Eating Disorder, Hx of Violent Episodes Against Others - Surgical History Surgery Procedure, Year, and Place: tonsils removed, - Immunization History Immunizations Up to Date: Yes Infectious Disease History: No Infectious Disease History: Denies: Traveled Outside the [place] in Last 30 Days - Family History Known Family History: Positive: Non-Contributory - Social History Alcohol Use: Occasionally Hx Substance Use: Yes Substance Use Type: Reports: Marijuana Hx Tobacco Use: No Smoking Status (MU): Current Some Day Smoker Review of Systems Constitutional: Negative Eyes: Negative ENT: Negative Cardiovascular: Negative Respiratory: Negative Positive: Abdominal Pain, Vomiting, Diarrhea, Nausea Genitourinary: Negative Musculoskeletal: Negative Skin: Negative Neurological: Negative Psychological: Normal All Other Systems Reviewed And Are Negative: Yes Physical Exam - Summary Physical Exam Summary: Mild tenderness with palpation of left upper quadrant and left lower quadrant intermittently. Abdominal exam otherwise benign. Triage Information Reviewed: Yes Vital Signs On Initial Exam: Initial Vitals Temp Pulse Resp BP Pulse Ox 98.3 F 74 16 155/105 100 08/08/19 22:39 08/08/19 22:39 08/08/19 22:39 08/08/19 22:39 08/08/19 22:39 Vital Signs Reviewed: Yes Appearance: Positive: Well-Appearing Skin: Positive: Warm Head/Face: Positive: Normal Head/Face Inspection Eyes: Positive: Normal Neck: Positive: Supple Respiratory/Lung Sounds: Positive: Clear to Auscultation Cardiovascular: Positive: Normal Abdomen Description: Positive: Other: Musculoskeletal: Positive: Normal Neurological: Positive: Normal Psychiatric: Positive: Normal AVPU Assessment: Alert - [place] Coma Scale Best Eye Response: 4 - Spontaneous Best Motor Response: 6 - Obeys Commands Best Verbal Response: 5 - Oriented Coma Scale Total: 15 Diagnostics - Vital Signs Vital Signs Temp Pulse Resp BP Pulse Ox 08/08/19 22:39 98.3 F 74 16 155/105 100 - Laboratory Result Diagrams: 08/08/19 23:15 08/08/19 23:15 Lab Statement: Any lab studies that have been ordered have been reviewed, and results considered in the medical decision making process. Naus/Vom/Diarrhea Course/Dx - Course Course Of Treatment: Patient complains of sudden onset severe nausea vomiting and diarrhea starting at 11 AM this morning. Patient unable to tolerate solid or fluid by mouth intake. Complains of intermittent abdominal cramping on left side worse with urge to vomit or have diarrhea, resolves after vomiting or bowel movement. Denies fever, cough, sore throat, CP, SOB, change in urine, vaginal symptoms. Medical history is none. Abdominal surgical history is none. Vital signs within normal limits. WBC 14. PH 7.47, alkalosis likely secondary to severe vomiting and diarrhea. Anion gap 14. 2 L normal saline. Zofran 8 mg controlled nausea for a while. Ativan 1 mg appears to control nausea vomiting. Patient states she feels much better. Discharged with Rx for Zofran ODT and Ativan 1 mg for breakthrough nausea vomiting. - Differential Dx/Diagnosis Provider Diagnosis: Nausea vomiting and diarrhea Condition At Discharge: Stable Discharge ED - Sign-Out/Discharge Documenting (check all that apply): Patient Departure Patient Received Moderate/Deep Sedation with Procedure: No - Discharge Plan Condition: Stable Disposition: HOME Prescriptions: LORazepam [Ativan] 1 mg PO Q6H 1 Days #4 tablet MDD 4 tabs Ondansetron ODT TAB* [Zofran 4 MG Odt TAB*] 4 mg PO Q8H PRN 4 Days #14 tab.odt PRN Reason: Nausea Patient Education Materials: Acute Nausea and Vomiting (ED), Acute Diarrhea (ED ) Forms: *Work Release Referrals: No Primary Care Phys,NOPCP [Primary Care Provider] - Additional Instructions: Drink plenty of fluids to maintain hydration and electrolytes. Take Zofran as directed if needed for vomiting and nausea. Take Ativan if Zofran is not controlling nausea and vomiting. You may use [id number] loperamide for diarrhea. Return to the ED for any worsening symptoms - Billing Disposition and Condition Condition: STABLE Disposition: Home
[2019-08-08 23:23] LABS: ABS Basophils 0.1 10^3/ul (0-0.2); ABS Lymphocytes 0.9 10^3/ul (1.0-4.8); ABS Monocytes 0.2 10^3/ul (0-0.8); ABS Neutrophils 12.9 10^3/ul (1.5-7.7); Hematocrit 39 % (35-47); Hemoglobin 13.3 g/dL (12.0-16.0); Lymphocyte % 6.5 %; Mean Corpuscular HGB Conc 35 g/dL (31-36); Mean Corpuscular Hemoglobin 29 pg (27-31); Mean Corpuscular Volume 84 fL (80-97); Mean Platelet Volume 7.7 fL (7.4-10.4); Nucleated Red Blood Cells % 0.1; Platelet Count 301 10^3/uL (150-450); Red Cell Distribution Width 13 % (10-15); White Blood Count 14.1 10^3/uL (3.5-10.8)
[2019-08-08 23:42] LABS: ALT 11 U/L (7-52); AST 12 U/L (13-39); Albumin 4.5 g/dL (3.2-5.2); Albumin/Globulin Ratio 1.4 (1-3); Alkaline Phosphatase 52 U/L (34-104); Anion Gap 14 mmol/L (2-11); BUN/Creatinine Ratio 16.7 (8-20); Blood Urea Nitrogen 13 mg/dL (6-24); C Reactive Protein 14.47 mg/L (<8.01); CO2 Carbon Dioxide 18 mmol/L (22-32); Calcium 9.4 mg/dL (8.6-10.3); Chloride 105 mmol/L (101-111); EGFR African American 109.8 (>60); EGFR Non-African American 90.7 (>60); Globulin 3.3 g/dL (2-4); Glucose 146 mg/dL (70-100); Potassium 3.8 mmol/L (3.5-5.0); Sodium 137 mmol/L (135-145); Total Protein 7.8 g/dL (6.4-8.9)
[2019-08-08 23:48] LABS: HCG Pregnancy < 0.60 mIU/mL
[2019-08-09] MEDS ORDERED: Ondansetron INJ* 2 MG/ML VIAL IV ONE (00:13)
[2019-08-09] MEDS ORDERED: Morphine 4 MG/ML VIAL (1 ml) 4 MG/ML VIAL IV ONE (00:20)
[2019-08-09] MEDS ORDERED: Lorazepam PYXIS KEY PRN (00:25)
[2019-08-09] MEDS ORDERED: LORazepam INJ* 2 MG/ML 1 ML VIAL IV PUSH ONE (00:25)
[2019-08-09] MEDS ORDERED: Lorazepam PYXIS KEY ONE (00:38)
[2019-08-09 02:17] VITALS: BP 117/68
== END 2019-08-09 02:17 | disposition home or self-care (01) ==
LOC: ED 22:38
DX: R11.2 Nausea with vomiting, unspecified (principal); R19.7 Diarrhea, unspecified; R10.812 Left upper quadrant abdominal tenderness; R10.814 Left lower quadrant abdominal tenderness; Z91.011 Allergy to milk products; Z72.0 Tobacco use
CPT/HCPCS: 36415; 80053; 82803; 83690; 84702; 85025; 86140; 96361; 96374; 96375; 99283; J2060; J2405

== ENCOUNTER 2019-11-19 09:05 | Emergency (ER) | payer SELFPAY ==
[2019-11-19 09:40] LABS: ABS Basophils 0.1 10^3/ul (0-0.2); ABS Eosinophils 0.1 10^3/ul (0-0.6); ABS Lymphocytes 2.4 10^3/ul (1.0-4.8); ABS Monocytes 0.6 10^3/ul (0-0.8); ABS Neutrophils 7.5 10^3/ul (1.5-7.7); Eosinophil % 0.8 %; Hematocrit 47 % (35-47); Hemoglobin 15.9 g/dL (12.0-16.0); Lymphocyte % 22.3 %; Mean Corpuscular HGB Conc 34 g/dL (31-36); Mean Corpuscular Hemoglobin 28 pg (27-31); Mean Corpuscular Volume 84 fL (80-97); Mean Platelet Volume 7.4 fL (7.4-10.4); Nucleated Red Blood Cells % 0.1; Platelet Count 365 10^3/uL (150-450); Red Blood Count 5.67 10^6 /uL (3.70-4.87); Red Cell Distribution Width 14 % (10-15); White Blood Count 10.7 10^3/uL (3.5-10.8)
[2019-11-19] MEDS: Ondansetron INJ* 2 MG/ML VIAL IV ONE ×2 (09:42→09:52)
[2019-11-19] MEDS: Lactated Ringers 1000 ML Bag* 1,000 ML IV SCH ×2 (09:42→09:52)
[2019-11-19 09:56] LABS: ALT 20 U/L (7-52); AST 18 U/L (13-39); Albumin 4.7 g/dL (3.2-5.2); Albumin/Globulin Ratio 1.2 (1-3); Alkaline Phosphatase 50 U/L (34-104); Anion Gap 16 mmol/L (2-11); Blood Urea Nitrogen 15 mg/dL (6-24); CO2 Carbon Dioxide 21 mmol/L (22-32); Calcium 10.3 mg/dL (8.6-10.3); Chloride 104 mmol/L (101-111); EGFR African American 95.5 (>60); EGFR Non-African American 78.9 (>60); Globulin 3.9 g/dL (2-4); Glucose 113 mg/dL (70-100); Potassium 3.3 mmol/L (3.5-5.0); Sodium 141 mmol/L (135-145); Total Protein 8.6 g/dL (6.4-8.9)
[2019-11-19 10:03] LABS: HCG Pregnancy < 0.60 mIU/mL
[2019-11-19] MEDS: Potassium Chlor TAB* 20 MEQ TAB.ER PO ONE ×2 (10:37→10:55)
[2019-11-19] MEDS ORDERED: Metoclopramide IV* 5 MG/ML 2 ML VIAL IV ONE (10:46)
[2019-11-19] MEDS ORDERED: Lactated Ringers 1000 ML Bag* 1,000 ML IV SCH (11:00)
--- NOTE | 2019-11-19 11:00 | ED ---
Nausea/Vomiting/Diarrhea HPI - HPI Summary HPI Summary: This patient is a 24-year-old female with history of nausea, vomiting, diarrhea presents to the ED for same. She states 2 days ago she developed symptoms which have been persistent until approximately 12 hours ago. She states all symptoms resolved spontaneously until this morning and all symptoms began again. She has never been diagnosed with cyclic vomiting syndrome. She states she did not eat anything abnormal. She did try to take 2 of her Zofran at home without relief. She has been unable to keep anything down this morning and last by mouth intake was last evening. No past medical history otherwise. No surgical history. Patient takes no medications. - History of Current Complaint Chief Complaint: EDNauseaVomitDiarrh Stated Complaint: VOMITING Time Seen by Provider: 11/19/19 09:22 Hx Obtained From: Patient ?: No Onset/Duration: Sudden Onset Timing: Constant Severity Initially: Severe Severity Currently: Severe Pain Intensity: 3 Pain Scale Used: 0-10 Numeric Aggravating Factor(s): Nothing Alleviating Factor(s): Nothing Vomiting Frequency: Every 15-60 minutes Nausea/Vomiting Duration: 0-12 hours Vomiting Characteristics: Retching Diarrhea Presence: Yes Diarrhea Frequency: Every 1-2 hours Diarrhea Duration: 0-12 hours - Risk Factors Influenza Risk Factors: Negative - Allergies/Home Medications Allergies/Adverse Reactions: Allergies Allergy/AdvReac Type Severity Reaction Status Date / Time lactose Allergy Abdominal Verified 11/19/19 09:06 Pain milk Allergy Abdominal Verified 11/19/19 09:06 Pain Milk Containing Products Allergy Abdominal Verified 11/19/19 09:06 Pain PMH/Surg Hx/FS Hx/Imm Hx Previously Healthy: Yes Endocrine/Hematology History: Denies: Hx Anticoagulant Therapy Cardiovascular History: Denies: Hx Pacemaker/ICD History: Denies: Hx Dialysis Sensory History: Reports: Hx Contacts or Glasses Denies: Hx Deafness, Hx Hearing Aid Opthamlomology History: Reports: Hx Contacts or Glasses Neurological History: Denies: Hx Dementia Psychiatric History: Denies: Hx Eating Disorder, Hx of Violent Episodes Against Others - Surgical History Surgery Procedure, Year, and Place: tonsils removed, - Immunization History Hx Pertussis Vaccination: No Immunizations Up to Date: Yes Infectious Disease History: No Infectious Disease History: Denies: Traveled Outside the [place] in Last 30 Days - Family History Known Family History: Positive: Non-Contributory - Social History Occupation: Employed Full-time Lives: With Family Alcohol Use: Occasionally Hx Substance Use: Yes Substance Use Type: Reports: Marijuana Hx Tobacco Use: No Smoking Status (MU): Current Some Day Smoker Review of Systems Negative: Fever, Chills, Fatigue, Skin Diaphoresis Negative: Palpitations, Chest Pain Negative: Shortness Of Breath, Cough Positive: Vomiting, Diarrhea, Nausea Genitourinary: Negative Positive: no symptoms reported, see HPI Negative: Arthralgia, Myalgia Skin: Negative All Other Systems Reviewed And Are Negative: Yes Physical Exam Triage Information Reviewed: Yes Vital Signs On Initial Exam: Initial Vitals Temp Pulse Resp BP Pulse Ox 97 F 80 16 120/100 100 11/19/19 09:05 11/19/19 09:05 11/19/19 09:05 11/19/19 09:05 11/19/19 09:05 Completion Of Physical Exam Limited Due To: Dementia Appearance: Positive: Ill-Appearing Skin: Positive: Dry Head/Face: Positive: Normal Head/Face Inspection Eyes: Positive: EOMI, Conjunctiva Clear Neck: Positive: No Lymphadenopathy Respiratory/Lung Sounds: Positive: Clear to Auscultation, Breath Sounds Present Cardiovascular: Positive: RRR, Pulses are Symmetrical in both Upper and Lower Extremities Abdomen Description: Positive: Nontender, Soft Bowel Sounds: Positive: Present Neurological: Positive: Sensory/Motor Intact, Alert, Oriented to Person Place, Time, Speech Normal Psychiatric: Positive: Normal, Affect/Mood Appropriate AVPU Assessment: Alert Procedures - Sedation Patient Received Moderate/Deep Sedation with Procedure: No Diagnostics - Vital Signs Vital Signs Temp Pulse Resp BP Pulse Ox 11/19/19 10:00 68 100 11/19/19 09:28 72 158/115 94 11/19/19 09:27 74 100 11/19/19 09:05 97 F 80 16 120/100 100 - Laboratory Lab Results: Lab Results 11/19/19 11/19/19 11/19/19 Range/Units 09:32 09:32 09:32 WBC 10.7 (3.5-10.8) 10^3/uL RBC 5.67 H (3.70-4.87) 10^6 /uL Hgb 15.9 (12.0-16.0) g/dL Hct 47 (35-47) % MCV 84 (80-97) fL MCH 28 (27-31) pg MCHC 34 (31-36) g/dL RDW 14 (10-15) % Plt Count 365 (150-450) 10^3/uL MPV 7.4 (7.4-10.4) fL Neut % (Auto) 70.3 % Lymph % (Auto) 22.3 % Mchenry % (Auto) 5.6 % Eos % (Auto) 0.8 % Baso % (Auto) 1.0 % Absolute Neuts (auto) 7.5 (1.5-7.7) 10^3/ul Absolute Lymphs (auto) 2.4 (1.0-4.8) 10^3/ul Absolute Monos (auto) 0.6 (0-0.8) 10^3/ul Absolute Eos (auto) 0.1 (0-0.6) 10^3/ul Absolute Basos (auto) 0.1 (0-0.2) 10^3/ul Absolute Nucleated RBC 0.0 10^3/ul Nucleated RBC % 0.1 Sodium 141 (135-145) mmol/L Potassium 3.3 L (3.5-5.0) mmol/L Chloride 104 (101-111) mmol/L Carbon Dioxide 21 L (22-32) mmol/L Anion Gap 16 H (2-11) mmol/L BUN 15 (6-24) mg/dL Creatinine 0.88 (0.51-0.95) mg/dL Est GFR ( Amer) 95.5 (>60) Est GFR (Non-Af Amer) 78.9 (>60) BUN/Creatinine Ratio 17.0 (8-20) Glucose 113 H (70-100) mg/dL Lactic Acid 2.6 H* (0.5-2.0) mmol/L Calcium 10.3 (8.6-10.3) mg/dL Magnesium 2.0 (1.9-2.7) mg/dL Total Bilirubin 1.30 H (0.2-1.0) mg/dL AST 18 (13-39) U/L ALT 20 (7-52) U/L Alkaline Phosphatase 50 (34-104) U/L Total Protein 8.6 (6.4-8.9) g/dL Albumin 4.7 (3.2-5.2) g/dL Globulin 3.9 (2-4) g/dL Albumin/Globulin Ratio 1.2 (1-3) Lipase 22 (11.0-82.0) U/L Beta HCG, Quant < 0.60 mIU/mL Result Diagrams: 11/19/19 09:32 11/19/19 09:32 Lab Statement: Any lab studies that have been ordered have been reviewed, and results considered in the medical decision making process. Re-Evaluation - Re-Evaluation First Eval Change: Unchanged - continues to have nausea, less frequent wretching Naus/Vom/Diarrhea Course/Dx - Course Course Of Treatment: During this course treatment, the patient is evaluated for nausea, vomiting, diarrhea. On arrival into the ED, the patient is actively vomiting and dry heaving. She is given 4 mg Zofran and 1 L lactated Ringer's. Labs obtained which shows a normal white count, however lactic acid 2.5. She was subsequently given another liter of lactated Ringer's and 10 mg Reglan as symptoms did not completely resolve. Potassium 3.3, this was repleted with 40 mEq potassium chloride. Patient was subsequently given Ativan 1 mg with good effect. On reassessment one hour later, she complains of mild nausea, she was subsequently given another 4 mg Zofran. She states she is okay for discharge at this time. She will be given Reglan at home for nausea as she has Zofran. - Differential Dx/Diagnosis Differential Diagnoses - Female: Other - Cyclic vomiting, nausea, vomiting, diarrhea, gastroenteritis Provider Diagnosis: Nausea & vomiting Condition At Discharge: Stable Discharge ED - Sign-Out/Discharge Documenting (check all that apply): Patient Departure - Discharge Plan Condition: Stable Disposition: HOME Prescriptions: Metoclopramide TAB* [Reglan TAB*] 10 mg PO Q6H #20 tab Patient Education Materials: Cyclic Vomiting Syndrome (ED) Referrals: No Primary Care Phys,NOPCP [Primary Care Provider] - Additional Instructions: I have given you information regarding cyclic vomiting syndrome. Drink plenty of water, gatorade and eat small amounts at a time including cells , chicken noodle soup, toast, crackers Reglan 10 mg up to 4 times daily as needed for nausea You may also take your ativan and zofran as needed for nausea If you continue to be unable to tolerate fluids or food, return to the ED - Billing Disposition and Condition Condition: STABLE Disposition: Home - Attestation Statements Provider Attestation: I was available for consultation for this patient. I did not evaluate the patient or participate in any medical decision making or disposition decisions unless I am specifically named in the chart as having consulted on the patient. If I have consulted on the patient, please see my own ED note on the patient encounter. Melanie Martinez MD
[2019-11-19] MEDS ORDERED: LORazepam INJ* 2 MG/ML 1 ML VIAL IV PUSH ONE (11:39)
[2019-11-19] MEDS ORDERED: Lorazepam PYXIS KEY PRN (11:39)
[2019-11-19] MEDS ORDERED: Ondansetron INJ* 2 MG/ML VIAL IV ONE (13:21)
[2019-11-19 13:39] VITALS: BP 166/96
[2019-11-19] MEDS ORDERED: Potassium Chlor TAB* 20 MEQ TAB.ER PO SCH (14:00)
== END 2019-11-19 13:32 | disposition home or self-care (01) ==
LOC: ED 09:05
DX: R11.2 Nausea with vomiting, unspecified (principal); F17.200 Nicotine dependence, unspecified, uncomplicated
CPT/HCPCS: 36415; 80053; 83605; 83690; 83735; 84702; 85025; 96361; 96374; 96375; 99283; A9270-GY; J2060; J2405; J2765

== ENCOUNTER 2019-11-21 11:59 | Emergency (ER) | payer BC ==
[2019-11-21] MEDS ORDERED: NS 0.9% 1000 ML** 1,000 ML IV ONE ×2 (12:06→13:26)
--- NOTE | 2019-11-21 12:30 | ED ---
GI/ HPI - HPI Summary HPI Summary: Patient is a 24 y/o F presenting to [facility] for a chief complaint of vomiting that began on 11/17/19. Patient is present with her daughter and partner. Patient notes nausea, diarrhea, and decreased food and fluid intake because she cannot keep anything down. She describes episodes of vomiting on the night of when she had vomiting every 30 minutes to 1 hour. Patient previously had abdominal pain w vomiting which has since resolved. She denies fever. Patient was seen at [facility] on 11/19/19 for similar symptoms and diagnosed with cyclic vomiting. She had some relief with Zofran last taken on 11/20/19 and Ativan given at [facility]. She has no relief with Reglan. Patient state she stopped using tobacco on 11/16/19. Any significant PSHX or FMHx is denied. - History of Current Complaint Chief Complaint: EDNauseaVomitDiarrh Time Seen by Provider: 11/21/19 12:06 Stated Complaint: VOMITING PER PT Hx Obtained From: Patient Onset/Duration: Atraumatic, Still Present Timing: Intermittent Severity: Moderate Current Severity: Moderate Pain Intensity: 2 Location of Pain: Diffuse - Resolved Pain Characteristics: Unable to describe Associated Signs and Symptoms: Positive: Nausea, Vomiting, Diarrhea, Change in Appetite - Decreased food and fluid intake. Negative: Fever, Abdominal Pain - Resolved Aggravating Factor(s): Nothing Alleviating Factor(s): Medication - Zofran, Ativan - Additional Pertinent History Primary Care Physician: [facility] - Allergy/Home Medications Allergies/Adverse Reactions: Allergies Allergy/AdvReac Type Severity Reaction Status Date / Time lactose Allergy Abdominal Verified 11/21/19 12:39 Pain milk Allergy Abdominal Verified 11/21/19 12:39 Pain Milk Containing Products Allergy Abdominal Verified 11/21/19 12:39 Pain PMH/Surg Hx/FS Hx/Imm Hx Previously Healthy: Yes Endocrine/Hematology History: Denies: Hx Anticoagulant Therapy, Hx Diabetes Cardiovascular History: Denies: Hx Hypercholesterolemia, Hx Hypertension, Hx Pacemaker/ICD History: Denies: Hx Dialysis Musculoskeletal History: Reports: Other Musculoskeletal History - Cyclic vomiting Sensory History: Reports: Hx Contacts or Glasses Denies: Hx Legally Blind, Hx Deafness, Hx Hearing Aid Opthamlomology History: Reports: Hx Contacts or Glasses Denies: Hx Legally Blind EENT History: Denies: Hx Deafness Neurological History: Denies: Hx Dementia Psychiatric History: Denies: Hx Eating Disorder, Hx of Violent Episodes Against Others - Surgical History Surgical History: Yes Surgery Procedure, Year, and Place: tonsils removed, - Immunization History Date of Influenza Vaccine: 2019 Immunizations Up to Date: Yes Infectious Disease History: No Infectious Disease History: Denies: Traveled Outside the [place] in Last 30 Days - Family History Known Family History: Negative: Cardiac Disease, Hypertension, Diabetes - Social History Occupation: Employed Full-time Alcohol Use: Rare Hx Substance Use: Yes Substance Use Type: Reports: Marijuana Substance Use Comment - Amount & Last Used: 11/14/19 Hx Tobacco Use: Yes Smoking Status (MU): Former Smoker Review of Systems Positive: Other - Positive decreased fluid and food intake. Negative: Fever Positive: Vomiting, Diarrhea, Nausea. Negative: Abdominal Pain - Resolved All Other Systems Reviewed And Are Negative: Yes Physical Exam - Summary Physical Exam Summary: Constitutional: Well-developed, Well-nourished, Alert. (-) Distressed Skin: Warm, Dry HENT: Normocephalic; Atraumatic Eyes: Conjunctiva normal Neck: Musculoskeletal ROM normal neck. (-) JVD, (-) Stridor, (-) Nuchal rigidity Cardio: Rhythm regular, rate normal, Heart sounds normal; Intact distal pulses; Radial pulses are 2+ and symmetric. (-) Murmur Pulmonary/Chest wall: Effort normal. (-) Respiratory distress, (-) Wheezes, (-) Rales Abd: Soft, (-) tenderness, (-) Distension, (-) Guarding, (-) Rebound Musculoskeletal: (-) Edema Lymph: (-) Cervical adenopathy Neuro: Alert, Oriented x3 Psych: Mood and affect Normal Triage Information Reviewed: Yes Vital Signs On Initial Exam: Initial Vitals Temp Pulse Resp BP Pulse Ox 99.3 F 73 18 163/106 99 11/21/19 11:59 11/21/19 11:59 11/21/19 11:59 11/21/19 11:59 11/21/19 11:59 Vital Signs Reviewed: Yes Procedures - Sedation Patient Received Moderate/Deep Sedation with Procedure: No Diagnostics - Vital Signs Vital Signs Temp Pulse Resp BP Pulse Ox 11/21/19 11:59 99.3 F 73 18 163/106 99 - Laboratory Result Diagrams: 11/21/19 12:30 11/21/19 16:50 Lab Statement: Any lab studies that have been ordered have been reviewed, and results considered in the medical decision making process. - EKG 12:17 Cardiac Rate: NL - 71 BPM EKG Rhythm: Sinus Rhythm ST Segment: Normal Ectopy: None Summary of EKG Findings: An EKG at 12:17 reveals normal sinus rhythm with 71 BPM , nml axis, nml intervals. No STEMI. No acute changes. Reviewed and interpreted by Dr. Martinez. Re-Evaluation - Re-Evaluation First Eval Re-Evaluation Time: 14:17 Change: Unchanged Comment: At 14:17, patient is continuing to vomit. Second Eval Re-Evaluation Time: 17:21 Change: Improved Comment: At 17:21, patient is feeling improved and ready for discharge. GIGU Course/Dx - Course Course Of Treatment: 24-year-old female with a history of recent nausea vomiting presents with continued vomiting. - On arrival to ED patient nauseous , and 2 episodes of emesis. Abdomen soft, patient states she is having abdominal pain except when she is vomiting. No fevers. Did try Zofran once at home but did not have more Zofran. We'll give IV fluids, given Haldol since Zofran was not working and she is a history of marijuana use. EKG does not show prolonged QTC. - Labs notable for hypokalemia and elevated anion gap likely secondary to dehydration. Potassium repleted, repeat labs improved. Patient tolerating by mouth after Compazine, we'll send home on Compazine told not to use with other antiemetics - Diagnoses Provider Diagnoses: Nausea and vomiting Discharge ED - Sign-Out/Discharge Documenting (check all that apply): Patient Departure - Discharge - Discharge Plan Condition: Stable Disposition: HOME Prescriptions: Prochlorperazine TAB* [Compazine Tab*] 5 mg PO Q8H PRN 4 Days #12 tab PRN Reason: Vomiting Patient Education Materials: Acute Nausea and Vomiting (ED) Referrals: [facility] [Outside] Additional Instructions: You were seen in the emergency department for nausea and vomiting. You can take Compazine as needed for nausea 15 minutes prior to eating. Please do not take Compazine with Reglan or Zofran. Please follow up with your primary care doctor in next 2-3 days and return to emergency department for abdominal pain, inability to eat or drink, worsening, or concerning symptoms. It was a pleasure taking care of you today. - Billing Disposition and Condition Condition: STABLE Disposition: Home - Attestation Statements Document Initiated by Daron: Yes Documenting Scribe: Cari Story Provider For Whom Daron is Documenting (Include Credential): Melanie Martinez MD Scribe Attestation: I, Cari Story, scribed for Melanie Martinez MD on 11/21/19 at 1825. Scribe Documentation Reviewed: Yes Provider Attestation: The documentation as recorded by the Cari khalil accurately reflects the service I personally performed and the decisions made by me, Melanie Martinez MD Status of Scribe Document: Viewed
[2019-11-21] MEDS ORDERED: Haloperidol INJ IV/IM* 5 MG/ML AMP IV SLOW PU ONE (12:39)
[2019-11-21 12:42] LABS: ABS Basophils 0.1 10^3/ul (0-0.2); ABS Lymphocytes 2.6 10^3/ul (1.0-4.8); ABS Monocytes 0.7 10^3/ul (0-0.8); ABS Neutrophils 7.9 10^3/ul (1.5-7.7); Eosinophil % 0.4 %; Hematocrit 46 % (35-47); Hemoglobin 15.8 g/dL (12.0-16.0); Lymphocyte % 22.8 %; Mean Corpuscular HGB Conc 35 g/dL (31-36); Mean Corpuscular Hemoglobin 28 pg (27-31); Mean Corpuscular Volume 82 fL (80-97); Mean Platelet Volume 7.5 fL (7.4-10.4); Nucleated Red Blood Cells % 0.1; Platelet Count 376 10^3/uL (150-450); Red Blood Count 5.57 10^6 /uL (3.70-4.87); Red Cell Distribution Width 14 % (10-15); White Blood Count 11.3 10^3/uL (3.5-10.8)
[2019-11-21 12:54] LABS: Albumin 4.7 g/dL (3.2-5.2); Albumin/Globulin Ratio 1.2 (1-3); BUN/Creatinine Ratio 14.9 (8-20); Calcium 10.3 mg/dL (8.6-10.3); EGFR African American 116.7 (>60); EGFR Non-African American 96.4 (>60); Globulin 3.8 g/dL (2-4); Magnesium 1.9 mg/dL (1.9-2.7); Total Bilirubin 1.9 mg/dL (0.2-1.0); Total Protein 8.5 g/dL (6.4-8.9)
[2019-11-21] MEDS ORDERED: Potassium Chlor TAB* 20 MEQ TAB.ER PO ONE (13:05)
[2019-11-21] MEDS ORDERED: PROCHLORPERAZINE INJ 5 MG/ML 2 ML VIAL IV ONE (14:18)
[2019-11-21 16:04] VITALS: BP 159/96
[2019-11-21 17:11] LABS: BUN/Creatinine Ratio 13.8 (8-20); Calcium 8.7 mg/dL (8.6-10.3); EGFR African American 135.5 (>60); Potassium 3.1 mmol/L (3.5-5.0)
== END 2019-11-21 17:41 | disposition home or self-care (01) ==
LOC: ED 11:59
DX: R11.2 Nausea with vomiting, unspecified (principal); Z87.891 Personal history of nicotine dependence
CPT/HCPCS: 36415; 80048; 80053; 83735; 85025; 93005; 96361; 96374; 96375; 99284; A9270-GY; J0780; J1630; Q0164

== ENCOUNTER 2019-11-22 11:19 | Emergency (ER) | payer BC ==
--- NOTE | 2019-11-22 11:48 | ED ---
Complex/Multi-Sys Presentation - HPI Summary HPI Summary: 24-year-old female presents to emergency department today complaining of trismus , muscle fasciculation and spasm which began this morning. Patient was seen here yesterday for cyclical vomiting and treated with IV Compazine. Patient states she began having these symptoms this afternoon and they have been continually getting worse. Patient reports trouble speaking and moving her upper extremities. Patient denies shortness of breath or trouble secretions or swallowing. No stridor is noted. She denies fever, chest pain, abdominal pain , beginning urination or rash, joint pain, vomiting. - History Of Current Complaint Chief Complaint: EDAllergicReaction Time Seen by Provider: 11/22/19 11:44 Hx Obtained From: Patient Onset/Duration: Sudden Onset Timing: Constant Severity Currently: Mild Severity Initially: Moderate Associated Signs And Symptoms: Negative: Headache, SOB, Cough, Chest Pain, Nausea, Vomiting, Diarrhea, Abdominal Pain, Back Pain, Fever - Allergies/Home Medications Allergies/Adverse Reactions: Allergies Allergy/AdvReac Type Severity Reaction Status Date / Time lactose Allergy Abdominal Verified 11/21/19 12:39 Pain milk Allergy Abdominal Verified 11/21/19 12:39 Pain Milk Containing Products Allergy Abdominal Verified 11/21/19 12:39 Pain PMH/Surg Hx/FS Hx/Imm Hx Endocrine/Hematology History: Denies: Hx Anticoagulant Therapy, Hx Diabetes Cardiovascular History: Denies: Hx Hypercholesterolemia, Hx Hypertension, Hx Pacemaker/ICD History: Denies: Hx Dialysis Musculoskeletal History: Reports: Other Musculoskeletal History - Cyclic vomiting Sensory History: Reports: Hx Contacts or Glasses Denies: Hx Legally Blind, Hx Deafness, Hx Hearing Aid Opthamlomology History: Reports: Hx Contacts or Glasses Denies: Hx Legally Blind Neurological History: Denies: Hx Dementia Psychiatric History: Denies: Hx Eating Disorder, Hx of Violent Episodes Against Others - Surgical History Surgery Procedure, Year, and Place: tonsils removed, - Immunization History Date of Influenza Vaccine: 2018 Infectious Disease History: No Infectious Disease History: Denies: Traveled Outside the [place] in Last 30 Days - Family History Known Family History: Positive: Non-Contributory Negative: Cardiac Disease, Hypertension, Diabetes - Social History Alcohol Use: Rare Hx Substance Use: Yes Substance Use Type: Reports: Marijuana Substance Use Comment - Amount & Last Used: 11/14/19 Hx Tobacco Use: Yes Smoking Status (MU): Former Smoker Review of Systems Constitutional: Negative Eyes: Negative ENT: Negative Cardiovascular: Negative Respiratory: Negative Gastrointestinal: Negative Genitourinary: Negative Positive: Arthralgia, Myalgia, Decreased ROM Skin: Negative Neurological: Negative Positive: Slurred Speech Positive: Anxious All Other Systems Reviewed And Are Negative: Yes Physical Exam - Summary Physical Exam Summary: Patient has noted trismus and contracture of the upper extremities bilaterally with carpal spasms. Patient's physical exam is consistent with acute dystonic reaction to Compazine. Patient is in no acute distress and has no compromise of her airway. Triage Information Reviewed: Yes Vital Signs On Initial Exam: Initial Vitals Temp Pulse Resp BP Pulse Ox 97.0 F 100 18 150/114 97 11/22/19 11:22 11/22/19 11:22 11/22/19 11:22 11/22/19 11:22 11/22/19 11:22 Vital Signs Reviewed: Yes Appearance: Positive: Well-Appearing, No Pain Distress, Well-Nourished Skin: Positive: Warm, Skin Color Reflects Adequate Perfusion Eyes: Positive: EOMI, IZA ENT: Positive: Hearing grossly normal Respiratory/Lung Sounds: Positive: Clear to Auscultation, Breath Sounds Present Cardiovascular: Positive: RRR, S1, S2 Abdomen Description: Positive: Nontender, Soft Bowel Sounds: Positive: Present Musculoskeletal: Positive: Strength/ROM Intact Neurological: Positive: Sensory/Motor Intact, Alert, Oriented to Person Place, Time, Normal Gait, Speech Normal Psychiatric: Positive: Normal AVPU Assessment: Alert Procedures - Sedation Patient Received Moderate/Deep Sedation with Procedure: No Diagnostics - Vital Signs Vital Signs Temp Pulse Resp BP Pulse Ox 11/22/19 11:22 97.0 F 100 18 150/114 97 - Laboratory Lab Statement: Any lab studies that have been ordered have been reviewed, and results considered in the medical decision making process. Complex Multi-Symp Course/Dx Course Of Treatment: Patient was evaluated in the emergency department for a dystonic reaction to Compazine. Her vitals are noted and stable. Patient was given 50 mg Benadryl IM and monitored. Patient's symptoms resolved after being given Benadryl. Patient is stable for discharge and was informed to take Benadryl as needed when she experiences these symptoms. She is to follow-up with her primary care physician 5 days. - Diagnoses Differential Diagnoses/HQI/PQRI: Metabolic Abnormality, Other Provider Diagnoses: Acute dystonic reaction due to drugs Discharge ED - Sign-Out/Discharge Documenting (check all that apply): Patient Departure - Discharge Plan Condition: Stable Disposition: HOME Prescriptions: diPHENhydraMINE PO* [Benadryl PO 50 MG CAP*] 50 mg PO TID PRN #12 cap PRN Reason: Spasms - Muscle Ondansetron ODT TAB* [Zofran 4 MG Odt TAB*] 4 mg PO Q6H PRN #12 tab.odt PRN Reason: Nausea Patient Education Materials: Adverse Drug Reaction (ED) Referrals: No Primary Care Phys,NOPCP [Primary Care Provider] - [facility] [Outside] - 5 Days Additional Instructions: You were seen in the emergency department today due to a drug reaction to Compazine, called acute dystonia. If you experience these symptoms again please take Benadryl 50 mg. Please follow-up with your primary care physician or [facility] in 5 days for further evaluation and management of your symptoms. If you develop new or worsening symptoms please return to the emergency Department immediately. I have sent a prescription for Zofran to her pharmacy which is to be taken for nausea. - Billing Disposition and Condition Condition: STABLE Disposition: Home - Attestation Statements Provider Attestation: I was available for consult. This patient was seen by the YONATAN. The patient was not presented to, seen by, or examined by me. Stas Ogden MD
[2019-11-22] MEDS ORDERED: diPHENhydraMINE IV* 50 MG/ML 1 ml VIAL (BENADRYL) IM ONE (11:54)
[2019-11-22 12:32] VITALS: BP 132/87
== END 2019-11-22 12:31 | disposition home or self-care (01) ==
LOC: ED 11:19
DX: G24.02 Drug induced acute dystonia (principal); T43.3X5A Adverse effect of phenothiazine antipsychotics and neuroleptics, initial encounter; Y92.9 Unspecified place or not applicable; Z87.891 Personal history of nicotine dependence
CPT/HCPCS: 96372; 99282; J1200

== ENCOUNTER 2019-11-29 13:05 | Emergency (ER) | payer BC ==
[2019-11-29 13:49] LABS: ABS Basophils 0.1 10^3/ul (0-0.2); ABS Lymphocytes 0.8 10^3/ul (1.0-4.8); ABS Monocytes 0.2 10^3/ul (0-0.8); ABS Neutrophils 11.5 10^3/ul (1.5-7.7); Eosinophil % 0.1 %; Hematocrit 38 % (35-47); Lymphocyte % 6.3 %; Mean Corpuscular HGB Conc 34 g/dL (31-36); Mean Corpuscular Hemoglobin 28 pg (27-31); Mean Corpuscular Volume 83 fL (80-97); Mean Platelet Volume 8.2 fL (7.4-10.4); Platelet Count 283 10^3/uL (150-450); Red Blood Count 4.59 10^6 /uL (3.70-4.87); Red Cell Distribution Width 13 % (10-15); White Blood Count 12.6 10^3/uL (3.5-10.8)
[2019-11-29 14:06] LABS: ALT 13 U/L (7-52); AST 11 U/L (13-39); Albumin 4.5 g/dL (3.2-5.2); Albumin/Globulin Ratio 1.6 (1-3); Alkaline Phosphatase 41 U/L (34-104); Anion Gap 12 mmol/L (2-11); BUN/Creatinine Ratio 12.7 (8-20); Blood Urea Nitrogen 9 mg/dL (6-24); CO2 Carbon Dioxide 20 mmol/L (22-32); Calcium 9.4 mg/dL (8.6-10.3); Chloride 106 mmol/L (101-111); EGFR African American 122.4 (>60); EGFR Non-African American 101.1 (>60); Globulin 2.9 g/dL (2-4); Glucose 134 mg/dL (70-100); Potassium 3.2 mmol/L (3.5-5.0); Sodium 138 mmol/L (135-145); Total Protein 7.4 g/dL (6.4-8.9)
[2019-11-29 14:12] LABS: HCG Pregnancy < 0.60 mIU/mL
[2019-11-29] MEDS ORDERED: Metoclopramide IV* 5 MG/ML 2 ML VIAL IV SLOW PU ONE (14:57)
[2019-11-29] MEDS ORDERED: diPHENhydraMINE IV* 50 MG/ML 1 ml VIAL (BENADRYL) SLOW PUSH ONE (14:57)
[2019-11-29] MEDS ORDERED: NS 0.9% 1000 ML** 1,000 ML IV ONE (14:57)
[2019-11-29] MEDS ORDERED: Ketorolac INJ* 30 MG/ML 1 ML VIAL IV PUSH ONE (14:57)
--- NOTE | 2019-11-29 15:06 | ED ---
GI/ HPI - HPI Summary HPI Summary: 24 year old female presents with vomiting today. She has history of cyclical vomiting. She admits to diarrhea. She does smoke marijuana. States she tried Zofran and Benadryl and Compazine with no relief at home. She does admits to generalized abdominal pain in that her abdomen just feels off. Denies any cough. No urinary symptoms. Denies any fevers. No other symptoms. She denies any fever. She states she is trying to cut back on how much marijuana that she smokes. - History of Current Complaint Chief Complaint: EDNauseaVomitDiarrh Time Seen by Provider: 11/29/19 14:47 Stated Complaint: VOMITING PER PT Pain Intensity: 2 - Additional Pertinent History Primary Care Physician: [id number] - Allergy/Home Medications Allergies/Adverse Reactions: Allergies Allergy/AdvReac Type Severity Reaction Status Date / Time lactose Allergy Abdominal Verified 11/29/19 13:10 Pain milk Allergy Abdominal Verified 11/29/19 13:10 Pain Milk Containing Products Allergy Abdominal Verified 11/29/19 13:10 Pain Home Medications: Home Medications Prochlorperazine 5 mg TAB [Compazine 5 mg TAB] 5 mg PO Q8H PRN 11/29/19 [ History Confirmed 11/29/19] diPHENhydraMINE PO* [Benadryl PO 50 MG CAP*] 50 mg PO TID 11/29/19 [History Confirmed 11/29/19] PMH/Surg Hx/FS Hx/Imm Hx Endocrine/Hematology History: Denies: Hx Anticoagulant Therapy, Hx Diabetes Cardiovascular History: Denies: Hx Hypercholesterolemia, Hx Hypertension, Hx Pacemaker/ICD History: Denies: Hx Dialysis Musculoskeletal History: Reports: Other Musculoskeletal History - Cyclic vomiting Sensory History: Reports: Hx Contacts or Glasses Denies: Hx Legally Blind, Hx Deafness, Hx Hearing Aid Opthamlomology History: Reports: Hx Contacts or Glasses Denies: Hx Legally Blind Neurological History: Denies: Hx Dementia Psychiatric History: Denies: Hx Eating Disorder, Hx of Violent Episodes Against Others - Surgical History Surgery Procedure, Year, and Place: tonsils removed, - Immunization History Date of Influenza Vaccine: 2018 Infectious Disease History: No Infectious Disease History: Denies: Traveled Outside the [place] in Last 30 Days - Family History Known Family History: Positive: Non-Contributory Negative: Cardiac Disease, Hypertension, Diabetes - Social History Alcohol Use: Rare Hx Substance Use: Yes Substance Use Type: Reports: Marijuana Substance Use Comment - Amount & Last Used: 11/14/19 Hx Tobacco Use: Yes Smoking Status (MU): Light Every Day Tobacco Smoker Review of Systems Negative: Fever Negative: Chest Pain Negative: Shortness Of Breath Positive: Abdominal Pain, Vomiting, Diarrhea, Nausea All Other Systems Reviewed And Are Negative: Yes Physical Exam Triage Information Reviewed: Yes Vital Signs On Initial Exam: Initial Vitals Temp Pulse Resp BP Pulse Ox 97.4 F 80 16 165/97 99 11/29/19 13:07 11/29/19 13:07 11/29/19 13:07 11/29/19 13:07 11/29/19 13:07 Vital Signs Reviewed: Yes Appearance: Positive: Well-Appearing Skin: Positive: Warm, Dry Head/Face: Positive: Normal Head/Face Inspection Eyes: Positive: Normal, Conjunctiva Clear ENT: Positive: Pharynx normal Respiratory/Lung Sounds: Positive: Clear to Auscultation, Breath Sounds Present Cardiovascular: Positive: Normal, RRR Abdomen Description: Positive: Nontender, Soft Bowel Sounds: Positive: Present Musculoskeletal: Positive: Normal Neurological: Positive: Normal Psychiatric: Positive: Normal Procedures - Sedation Patient Received Moderate/Deep Sedation with Procedure: No Diagnostics - Vital Signs Vital Signs Temp Pulse Resp BP Pulse Ox 11/29/19 13:07 97.4 F 80 16 165/97 99 - Laboratory Lab Results: Lab Results 11/29/19 11/29/19 Range/Units 13:34 13:34 WBC 12.6 H (3.5-10.8) 10^3/uL RBC 4.59 (3.70-4.87) 10^6 /uL Hgb 13.0 (12.0-16.0) g/dL Hct 38 (35-47) % MCV 83 (80-97) fL MCH 28 (27-31) pg MCHC 34 (31-36) g/dL RDW 13 (10-15) % Plt Count 283 (150-450) 10^3/uL MPV 8.2 (7.4-10.4) fL Neut % (Auto) 91.5 % Lymph % (Auto) 6.3 % Bent % (Auto) 1.6 % Eos % (Auto) 0.1 % Baso % (Auto) 0.5 % Absolute Neuts (auto) 11.5 H (1.5-7.7) 10^3/ul Absolute Lymphs (auto) 0.8 L (1.0-4.8) 10^3/ul Absolute Monos (auto) 0.2 (0-0.8) 10^3/ul Absolute Eos (auto) 0.0 (0-0.6) 10^3/ul Absolute Basos (auto) 0.1 (0-0.2) 10^3/ul Absolute Nucleated RBC 0.0 10^3/ul Nucleated RBC % 0.0 Sodium 138 (135-145) mmol/L Potassium 3.2 L (3.5-5.0) mmol/L Chloride 106 (101-111) mmol/L Carbon Dioxide 20 L (22-32) mmol/L Anion Gap 12 H (2-11) mmol/L BUN 9 (6-24) mg/dL Creatinine 0.71 (0.51-0.95) mg/dL Est GFR ( Amer) 122.4 (>60) Est GFR (Non-Af Amer) 101.1 (>60) BUN/Creatinine Ratio 12.7 (8-20) Glucose 134 H (70-100) mg/dL Calcium 9.4 (8.6-10.3) mg/dL Total Bilirubin 0.40 (0.2-1.0) mg/dL AST 11 L (13-39) U/L ALT 13 (7-52) U/L Alkaline Phosphatase 41 (34-104) U/L Total Protein 7.4 (6.4-8.9) g/dL Albumin 4.5 (3.2-5.2) g/dL Globulin 2.9 (2-4) g/dL Albumin/Globulin Ratio 1.6 (1-3) Lipase 26 (11.0-82.0) U/L Beta HCG, Quant < 0.60 mIU/mL Result Diagrams: 11/29/19 13:34 11/29/19 13:34 Lab Statement: Any lab studies that have been ordered have been reviewed, and results considered in the medical decision making process. Re-Evaluation - Re-Evaluation First Eval Re-Evaluation Time: 16:03 Change: Improved Comment: nausea improved, feels ready to go home GIGU Course/Dx - Course Course Of Treatment: 24 year old female presents with vomiting today. She has history of cyclical vomiting. She admits to diarrhea. She does smoke marijuana. States she tried Zofran and Benadryl and Compazine with no relief at home. She does admits to generalized abdominal pain in that her abdomen just feels off. Denies any cough. No urinary symptoms. Denies any fevers. No other symptoms. She denies any fever. On exam has nontender abdomen. wbc 12 consistently vomiting. Potassium is 3.2. Gave Benadryl and Reglan Toradol and fluids and feeling better. gave potassium supplement. will place on supplement for next couple days. told follow up with satish clark. patient understand and agrees with plan. - Diagnoses Differential Diagnoses - Female: Gastroenteritis (Viral), Gastroenteritis ( Bacterial), Other - cyclic vomiting Provider Diagnoses: Vomiting, Hypokalemia Discharge ED - Sign-Out/Discharge Documenting (check all that apply): Patient Departure - Discharge Plan Condition: Good Disposition: HOME Prescriptions: Potassium Chlor TAB* [Klor Con ER TAB*] 20 meq PO DAILY #2 tab.er Patient Education Materials: Cyclic Vomiting Syndrome (ED) Referrals: [facility] [Outside] Additional Instructions: take potassium once a day for 2 more days try to stop smoking marijuana take zofran every 6 hours as needed for nausea follow up with satish clark Return to ED if develop any new or worsening symptoms - Billing Disposition and Condition Condition: GOOD Disposition: Home
[2019-11-29] MEDS ORDERED: Potassium Chloride* LIQUID 20 MEQ/15 ML UDC PO ONE (15:41)
[2019-11-29 16:22] VITALS: BP 132/90
== END 2019-11-29 16:21 | disposition home or self-care (01) ==
LOC: ED 13:05
DX: R10.9 Unspecified abdominal pain (principal); R11.2 Nausea with vomiting, unspecified; R19.7 Diarrhea, unspecified; E87.6 Hypokalemia; Z79.899 Other long term (current) drug therapy; F17.210 Nicotine dependence, cigarettes, uncomplicated
CPT/HCPCS: 36415; 80053; 83690; 84702; 85025; 99283; A9270-GY; J1200; J1885; J2765

== ENCOUNTER 2019-12-22 15:18 | Emergency (ER) | payer BC ==
[2019-12-22] MEDS ORDERED: Metoclopramide IV* 5 MG/ML 2 ML VIAL IV SLOW PU ONE (15:23)
[2019-12-22] MEDS ORDERED: NS 0.9% 1000 ML** 1,000 ML IV ONE (15:23)
--- NOTE | 2019-12-22 15:26 | ED ---
GI/ HPI - HPI Summary HPI Summary: The patient is a 24 y/o female arriving by ambulance to [facility] with a chief complaint of sudden onset nausea, vomiting, and diarrhea onset around 1200. She reports a history of cyclic vomiting syndrome with unknown etiology. Today, she had an episode of diarrhea following by nausea and vomiting many times. She denies any fevers or chills. She went to [facility] and was administered Zofran before being transferred to the ED. This is her fourth time coming to the ED for these symptoms. PMHx: major depressive disorder. Nonsmoker, rare EtOH, marijuana use (none today). Medications reviewed. Allergies noted. - History of Current Complaint Time Seen by Provider: 12/22/19 15:19 Stated Complaint: VOMITING PER EMS Hx Obtained From: Patient Onset/Duration: Started Hours Ago, Still Present Timing: Lasting Hours Severity: Moderate Current Severity: Moderate Associated Signs and Symptoms: Positive: Nausea, Vomiting. Negative: Fever, Chills Aggravating Factor(s): Nothing Alleviating Factor(s): Nothing - Additional Pertinent History Primary Care Physician: AMOL - Allergy/Home Medications Allergies/Adverse Reactions: Allergies Allergy/AdvReac Type Severity Reaction Status Date / Time lactose Allergy Abdominal Verified 12/22/19 15:38 Pain milk Allergy Abdominal Verified 12/22/19 15:38 Pain Milk Containing Products Allergy Abdominal Verified 12/22/19 15:38 Pain Home Medications: Home Medications Sertraline* [Zoloft*] 100 mg PO DAILY 12/22/19 [History Confirmed 12/22/19] PMH/Surg Hx/FS Hx/Imm Hx Endocrine/Hematology History: Denies: Hx Anticoagulant Therapy, Hx Diabetes Cardiovascular History: Denies: Hx Hypercholesterolemia, Hx Hypertension, Hx Pacemaker/ICD History: Denies: Hx Dialysis Musculoskeletal History: Reports: Other Musculoskeletal History - Cyclic vomiting Sensory History: Reports: Hx Contacts or Glasses Denies: Hx Legally Blind, Hx Deafness, Hx Hearing Aid Opthamlomology History: Reports: Hx Contacts or Glasses Denies: Hx Legally Blind Neurological History: Denies: Hx Dementia Psychiatric History: Denies: Hx Eating Disorder, Hx of Violent Episodes Against Others - Surgical History Surgical History: Yes Surgery Procedure, Year, and Place: tonsils removed, - Immunization History Date of Influenza Vaccine: 2018 - Family History Known Family History: Negative: Cardiac Disease, Hypertension, Diabetes - Social History Alcohol Use: Rare Hx Substance Use: Yes Substance Use Type: Reports: Marijuana Substance Use Comment - Amount & Last Used: 11/14/19 Hx Tobacco Use: Yes Smoking Status (MU): Light Every Day Tobacco Smoker Review of Systems Negative: Fever, Chills Positive: Vomiting, Diarrhea, Nausea All Other Systems Reviewed And Are Negative: Yes Physical Exam - Summary Physical Exam Summary: Constitutional: Well-developed, Well-nourished, Alert. (+) Mildly distressed with active vomiting Skin: Warm, Dry HENT: Normocephalic; Atraumatic; Dry mucous membranes Eyes: Conjunctiva normal Neck: Musculoskeletal ROM normal neck. (-) JVD, (-) Stridor, (-) Nuchal rigidity Cardio: Rhythm regular, rate normal, Heart sounds normal; Intact distal pulses; Radial pulses are 2+ and symmetric. (-) Murmur Pulmonary/Chest wall: Effort normal. (-) Respiratory distress, (-) Wheezes, (-) Rales Abd: Soft, (-) tenderness, (-) Distension, (-) Guarding, (-) Rebound Musculoskeletal: (-) Edema Lymph: (-) Cervical adenopathy Neuro: Alert, Oriented x3 Psych: Mood and affect Normal Triage Information Reviewed: Yes Vital Signs Reviewed: Yes Procedures - Sedation Patient Received Moderate/Deep Sedation with Procedure: No Diagnostics - Laboratory Result Diagrams: 12/22/19 15:52 12/22/19 15:52 Lab Statement: Any lab studies that have been ordered have been reviewed, and results considered in the medical decision making process. - EKG 1642 Cardiac Rate: NL - 65 BPM EKG Rhythm: Sinus Rhythm Summary of EKG Findings: An EKG at 1642 reveals normal sinus rhythm at 65 BPM, QTc of 434. No STEMI. ED physician has reviewed and interpreted this EKG. Re-Evaluation - Re-Evaluation First Eval Re-Evaluation Time: 17:05 Change: Improved - Patient stopped vomiting, magnesium 1.5, repleted. Potassium repleted as well Second Eval Re-Evaluation Time: 19:15 Change: Improved - resting, NAD. No further emesis Third Eval Re-Evaluation Time: 20:50 Comment: tolerated PO, plan for d/c GIGU Course/Dx - Course Course Of Treatment: 24 y/o F w hx cyclic vomiting presenting with emesis. - Abdomen soft, MM dry. Multiple episodes of vomiting. Patient given IV fluids, Reglan, repleated potassium and magnesium. Given Haldol for hyperemesis. Suspicion for hyperemesis aggravated by marijuana use, patient educated on cessation. Abdomen soft, do not suspect acute abdominal pathology. HCG neg 11/29 - Diagnoses Provider Diagnoses: Nausea & vomiting, Dehydration Discharge ED - Sign-Out/Discharge Documenting (check all that apply): Patient Departure - Patient will be discharged home. - Discharge Plan Condition: Stable Disposition: HOME Prescriptions: Metoclopramide TAB* [Reglan TAB*] 10 mg PO Q8H PRN 4 Days #12 tab PRN Reason: Vomiting Patient Education Materials: Acute Nausea and Vomiting (ED) Referrals: [facility] [Outside] - 3 Days Rhea Farley MD [Medical Doctor] - 3 Days Additional Instructions: You were seen in emergency department for nausea vomiting and diarrhea. Please drink lots of fluids including water or Gatorade. Please return to emergency department if you have worsening pain, continued vomiting and diarrhea and unable to drink fluids, continued fevers or if you're concerned. Please take Reglan as needed every 8 hours or vomiting. If any lab studies are completed at time of discharge, you'll be called with the relevant results. Please follow up with her primary care doctor in next 1-2 days. It was a pleasure taking care of you today! - Billing Disposition and Condition Condition: STABLE Disposition: Home - Attestation Statements Document Initiated by Daron: Yes Documenting Scribe: Lucero Brown Provider For Whom Daron is Documenting (Include Credential): Dr. Melanie Martinez MD Scribe Attestation: Lucero Grubbs, scribed for Dr. Melanie Martinez MD on 12/22/19 at 2140. Scribe Documentation Reviewed: Yes Provider Attestation: The documentation as recorded by the Lucero khalil accurately reflects the service I personally performed and the decisions made by me, Dr. Melanie Martinez MD Status of Scribdayana Document: Viewed
[2019-12-22 15:59] LABS: ABS Basophils 0.1 10^3/ul (0-0.2); ABS Lymphocytes 1.3 10^3/ul (1.0-4.8); ABS Monocytes 0.3 10^3/ul (0-0.8); ABS Neutrophils 10.3 10^3/ul (1.5-7.7); Eosinophil % 0.2 %; Hematocrit 41 % (35-47); Hemoglobin 13.8 g/dL (12.0-16.0); Lymphocyte % 10.7 %; Mean Corpuscular HGB Conc 34 g/dL (31-36); Mean Corpuscular Hemoglobin 29 pg (27-31); Mean Corpuscular Volume 84 fL (80-97); Mean Platelet Volume 7.5 fL (7.4-10.4); Platelet Count 327 10^3/uL (150-450); Red Blood Count 4.85 10^6 /uL (3.70-4.87); Red Cell Distribution Width 13 % (10-15)
[2019-12-22] MEDS ORDERED: Haloperidol INJ IV/IM* 5 MG/ML AMP IM ONE (16:01)
[2019-12-22 16:26] LABS: Albumin 4.3 g/dL (3.2-5.2); Albumin/Globulin Ratio 1.3 (1-3); Calcium 9.2 mg/dL (8.6-10.3); EGFR African American 135.5 (>60); Globulin 3.3 g/dL (2-4); Magnesium 1.5 mg/dL (1.9-2.7); Potassium 3.1 mmol/L (3.5-5.0); Total Bilirubin 0.5 mg/dL (0.2-1.0); Total Protein 7.6 g/dL (6.4-8.9)
[2019-12-22] MEDS ORDERED: Haloperidol INJ IV/IM* 5 MG/ML AMP IV SLOW PU ONE (16:27)
[2019-12-22] MEDS ORDERED: Magnesium Sulf 4 GM/100 ML IV* 4,000 MG/100 ML BAG IVPB ONE (17:08)
[2019-12-22] MEDS ORDERED: KCL 20 MEQ/100 ML IVPREMIX* 20 MEQ/100 ML BAG IV ONE (17:08)
[2019-12-22 21:01] VITALS: BP 148/89
== END 2019-12-22 21:00 | disposition home or self-care (01) ==
LOC: ED 15:18
DX: R11.2 Nausea with vomiting, unspecified (principal); E86.0 Dehydration; F17.200 Nicotine dependence, unspecified, uncomplicated; Z79.899 Other long term (current) drug therapy
CPT/HCPCS: 36415; 80053; 83735; 85025; 93005; 96361; 96365; 96366; 96372; 96375; 99283; J1630; J2765; J3475; J3480